=== PATIENT | male | born 1945 | race Caucasian/White ===

== ENCOUNTER 2022-12-27 08:19 | Inpatient (IN) ==
[2022-12-27] MEDS ORDERED: SODIUM CHLORIDE 0.9% 500 ML IV STA (08:38)
--- NOTE | 2022-12-27 08:41 | Emergency Department Note ---
Impression & Plan Chest pain ADMIT ED Provider Note HPI: The patient is a 77-year-old gentleman with history of paroxysmal atrial fibrillation, coronary artery disease status post CABG in 2008 through [facility], presents the emergency department with a chief complaint of ab normal EKG in the outpatient setting. Patient states that he is not normally in atrial fibrillation, he states that for the past 7 days he was able to tell given palpitations he was having that he was in A-fib. He had an outpatient appointment scheduled today with [facility] and EKG performed at that facility was "abnormal rhythm" according to the patient and therefore he was sent to the ED for further management. Patient denies any chest pain or shortness of breath. He does note that 3 weeks ago he was at [facility] in [place] and was admitted for "a heart attack". Patient underwent cardiac catheterization per outside hospital chart review, this did show evidence of sig nificant coronary artery disease with collateral circulation buildup and therefore stenting was not performed. He was diagnosed with NSTEMI. Manage medically. He did undergo cardioversion for atrial flutter prior to discharge. On arrival here the ED the patient is alert, he is in no acute distress, states that he is on a blood thinner but he does not know what it is. He is saturating well on room air and is otherwise well-appearing on my initial assessment. EKG obtained prior to my assessment does show evidence of atrial fibrillation that is rate controlled. ROS: - Per HPI *Outpatient medications and allergy history reviewed. *Pertinent external medical records reviewed. 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 Medical Decision Making: Patient presented to the emergency department with a chief complaint of palpitations for the past 7 days, had an abnormal EKG today in the outpatient s etting with [facility] that reportedly showed "abnormal rhythm" and therefore he was sent here to the ED to be assessed. On arrival the patient is in no acute distress, denies any chest pain or shortness of breath. IV was established and lab work obtained. 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 Lab work shows no leukocytosis, hemoglobin is normal at 15.5, platelet count within normal limits, CMP does not show any critical abnormalities, does show evidence of CKD and creatinine today is 1.85 near baseline, troponin is mildly elevated at 35.9, patient denies any chest pain. I did receive a phone call from Crissy Valles in the cardiology office for [facility], she states the patient was mentioning that he did have some substernal chest pain over the past week at rest that resolved with nitroglycerin. I asked the patient about this and he says in the past 3 days he has not had chest pain but earlier in the week he was having episodes that were resolved with nitroglycerin and they were occurring at rest. Given his extensive history of coronary artery disease with recent stenting, I feel he is appropriate for admission given this history. I did discuss the patient's case with on-call cardiology for [facility] given that he got all of his recent procedures performed at [facility], case was discussed with Dr. Ramírez, plan at this time will be for admission to the hospitalist service with cardiology consultation, patient will be made n.p.o. in case there is indication for cardioversion later this afternoon. At this time he is hemodynamically stable and in atrial fibrillation that is rate controlled. Patient had recent cardiac catheterization performed just 1 month ago at [facility], his EKG today does not show any evidence of ST elevation and he is chest pain-free, I do not see indication for emergent transfer to tertiary care facility for repeat catheterization at this time. Patient is in agreement. Case was discussed with the on-call midlevel provider for [facility], patient was placed for admission in stable condition. Consultants: -Cardiology, Dr. Ramírez -Hospitalist: Dr. Canas Disposition discussion held by myself with: Patient Diagnosis: 1. High risk chest pain, transient 2. Rate controlled atrial fibrillation 3. History of coronary artery disease 4. Elevated troponin Disposition: Admission Saúl Kaba DO Emergency Medicine Past Med/Surg History Medical History (Updated 12/27/22 @ 11:09 by Saúl Kaba DO) Atrial flutter CAD (coronary artery disease) DM II (diabetes mellitus, type II), controlled HLD (hyperlipidemia) HTN (hypertension) Hx of cataract Paroxysmal A-fib Surgical History (Updated 12/27/22 @ 11:04 by Nivia Hutson PA-C) H/O heart artery stent Hx of colonoscopy Hx of esophagogastroduodenoscopy S/P cardiac cath Family History (Updated 12/27/22 @ 11:05 by Nivia Hutson PA-C) Father Cancer Brother Lung disease Social History Smoking Status: Never smoker Preferred Language: French Feels Safe at Home: Yes Results & Data (ED) Vital Signs Vital Signs - 24 hr 12/27/22 08:27 12/27/22 08:45 12/27/22 08:48 Temperature 36.1 C L Temperature Source Temporal Artery Scan Pulse Rate 80 71 Respiratory Rate 22 Respiratory Effort / Characteristics Non-Labored Respiratory Depth Normal Blood Pressure 121/76 Blood Pressure Mean 91 Pulse Oximetry 96 96 Oxygen Delivery Method Room Air Room Air Sepsis Recent Fever Within 48 Hours No Sepsis New/Unexplained Change in Mental Status N/A Sepsis Action Taken by Nursing No Action Required Laboratory Data 12/27/22 08:45 12/27/22 08:45 Lab Results 12/27/22 12/27/22 12/27/22 Range/Units 08:45 08:45 08:45 WBC 7.86 (4.8-10.8) K/ul RBC 5.02 (4.70-6.10) M/uL Hgb 15.5 (14.0-18.0) g/dl Hct 47.2 (42.0-52.0) % MCV 94.0 (80.0-100.0) fL MCH 30.9 (25.0-34.0) pg MCHC 32.8 (32.0-36.0) g/dL RDW Std Deviation 46.3 (36.4-46.3) fL RDW Coeff of Katelyn 13.4 (11.5-14.5) % Plt Count 218 (130-400) K/uL MPV 9.8 (9.4-12.4) fL Immature Gran % (Auto) 0.3 % Neut % (Auto) 66.4 % Lymph % (Auto) 20.5 % [place] % (Auto) 9.4 % Eos % (Auto) 2.5 % Baso % (Auto) 0.9 % Neut # (Auto) 5.22 (1.40-6.50) K/uL Lymph # (Auto) 1.61 (1.2-3.4) K/uL [place] # (Auto) 0.74 H (0.11-0.59) K/uL Eos # (Auto) 0.20 (0-0.50) K/uL Baso # (Auto) 0.07 (0-0.2) K/uL Immature Gran # (Auto) 0.02 (0.01-0.20) K/uL PT 10.9 (9.0-12.0) Seconds INR 1.0 (0.9-1.1) Sodium 136 (136-145) mmol/L Potassium 5.0 (3.5-5.1) mmol/L Chloride 106 (98-107) mmol/L Carbon Dioxide 24 (21-32) mmol/L Anion Gap 6 (3-11) BUN 56 H (6-23) mg/dl Creatinine 1.85 H (0.6-1.4) mg/dl Est Cr Clr Drug Dosing 30.3 ml/min Est GFR ( Amer) 39.3 ml/min Est GFR (Non-Af Amer) 33.9 ml/min BUN/Creatinine Ratio 30.3 H (10-20) Glucose 149 H (70-99(Fasting)) mg/dl Calcium 9.8 (8.6-10.3) mg/dl Magnesium 2.0 (1.7-2.4) mg/dl Total Bilirubin 0.5 (0.2-1.0) mg/dl AST 10 L (13-39) U/L ALT 12 (7-52) U/L Alkaline Phosphatase 73 (34-104) U/L Troponin I High Sens 35.9 H (0-20) pg/ml Total Protein 7.6 (6.0-8.3) gm/dl Albumin 4.6 (3.4-5.0) gm/dl Globulin 3.0 (2.5-4.0) gm/dl Albumin/Globulin Ratio 1.5 (0.9-2) Lipase 65 (11-82) U/L TSH (0.300-4.500) uIu/ml SARS-CoV-2, RNA, NAAT (NEGATIVE) 12/27/22 12/27/22 Range/Units 08:45 09:15 WBC (4.8-10.8) K/ul RBC (4.70-6.10) M/uL Hgb (14.0-18.0) g/dl Hct (42.0-52.0) % MCV (80.0-100.0) fL MCH (25.0-34.0) pg MCHC (32.0-36.0) g/dL RDW Std Deviation (36.4-46.3) fL RDW Coeff of Katelyn (11.5-14.5) % Plt Count (130-400) K/uL MPV (9.4-12.4) fL Immature Gran % (Auto) % Neut % (Auto) % Lymph % (Auto) % [place] % (Auto) % Eos % (Auto) % Baso % (Auto) % Neut # (Auto) (1.40-6.50) K/uL Lymph # (Auto) (1.2-3.4) K/uL [place] # (Auto) (0.11-0.59) K/uL Eos # (Auto) (0-0.50) K/uL Baso # (Auto) (0-0.2) K/uL Immature Gran # (Auto) (0.01-0.20) K/uL PT (9.0-12.0) Seconds INR (0.9-1.1) Sodium (136-145) mmol/L Potassium (3.5-5.1) mmol/L Chloride (98-107) mmol/L Carbon Dioxide (21-32) mmol/L Anion Gap (3-11) BUN (6-23) mg/dl Creatinine (0.6-1.4) mg/dl Est Cr Clr Drug Dosing ml/min Est GFR ( Amer) ml/min Est GFR (Non-Af Amer) ml/min BUN/Creatinine Ratio (10-20) Glucose (70-99(Fasting)) mg/dl Calcium (8.6-10.3) mg/dl Magnesium (1.7-2.4) mg/dl Total Bilirubin (0.2-1.0) mg/dl AST (13-39) U/L ALT (7-52) U/L Alkaline Phosphatase (34-104) U/L Troponin I High Sens (0-20) pg/ml Total Protein (6.0-8.3) gm/dl Albumin (3.4-5.0) gm/dl Globulin (2.5-4.0) gm/dl Albumin/Globulin Ratio (0.9-2) Lipase (11-82) U/L TSH 0.654 (0.300-4.500) uIu/ml SARS-CoV-2, RNA, NAAT NEGATIVE (NEGATIVE) Administered Medications Discontinued Medications Sodium Chloride (Nss) 500 mls @ 999 mls/hr IV .Q31M STA Stop: 12/27/22 09:08 Last Infusion: 12/27/22 10:06 Dose: 0 mls/hr Documented By: Admin: 12/27/22 09:28 Dose: 999 mls/hr Documented By: OL Imaging Data Radiologist's Impression: Chest X-Ray 12/27/22 08:39 XR chest 1V portable CLINICAL HISTORY: Chest pain, nonspecific COMPARISON STUDY: No previous studies for comparison. FINDINGS: There are median sternotomy wires. Cardiac size is at the upper limits of normal. No pneumothorax or pleural effusion is present. There is no consolidation or evidence for pulmonary edema. IMPRESSION: No acute cardiopulmonary findings. ACT 112: Negative or not required by law. Electronically signed by: Rodger Judd M.D. 12/27/2022 9:01 AM Discharge Plan Visit Data Chief Complaint: Abnormal Labs/Diagnostic Testing Stated Complaint: EKG LOOKED FUNNY ED Provider: Saúl Kaba Discharge Problem: Chest pain Forms Stand Alone Forms: [facility] Referrals Referrals: PCP,NO [Primary Care Provider] -
--- NOTE | 2022-12-27 09:04 | XRay Report ---
XR chest 1V portable CLINICAL HISTORY: Chest pain, nonspecific COMPARISON STUDY: No previous studies for comparison. FINDINGS: There are median sternotomy wires. Cardiac size is at the upper limits of normal. No pneumo thorax or pleural effusion is present. There is no consolidation or evidence for pulmonary edema. IMPRESSION: No acute cardiopulmonary findings. ACT 112: Negative or not required by law. Electronically signed by: Rodger Judd M.D. 12/27/2022 9:01 AM
[2022-12-27 09:18] LABS: Basophils # (auto) 0.07 K/uL (0-0.2); Basophils % (auto) 0.9 %; Eosinophils % (auto) 2.5 %; Hematocrit (blood only) 47.2 % (42.0-52.0); Hemoglobin 15.5 g/dl (14.0-18.0); Immature Granulocytes # (auto) 0.02 K/uL (0.01-0.20); Immature Granulocytes % (auto) 0.3 %; Lymphocytes # (auto) 1.61 K/uL (1.2-3.4); Lymphocytes % (auto) 20.5 %; Mean Corpuscular Hemoglobin 30.9 pg (25.0-34.0); Mean Corpuscular Hgb Conc 32.8 g/dL (32.0-36.0); Mean Platelet Volume 9.8 fL (9.4-12.4); Monocytes # (auto) 0.74 K/uL (0.11-0.59); Monocytes % (auto) 9.4 %; Neutrophils # (auto) 5.22 K/uL (1.40-6.50); Neutrophils % (auto) 66.4 %; Platelet Count 218 K/uL (130-400); RDW Coefficient of Variation 13.4 % (11.5-14.5); RDW Standard Deviation 46.3 fL (36.4-46.3); Red Blood Count 5.02 M/uL (4.70-6.10); White Blood Count 7.86 K/ul (4.8-10.8)
[2022-12-27 09:29] LABS: Albumin Globulin Ratio 1.5 (0.9-2); Albumin Level 4.6 gm/dl (3.4-5.0); BUN Creatinine Ratio 30.3 (10-20); Bilirubin,Total 0.5 mg/dl (0.2-1.0); Calcium 9.8 mg/dl (8.6-10.3); Creatinine Clr Calc Pharmacy 30.3 ml/min; Est GFR (African American) 39.3 ml/min; Est GFR (Non-African American) 33.9 ml/min; Total Protein 7.6 gm/dl (6.0-8.3)
[2022-12-27 09:35] LABS: Troponin I High Sensitivity 35.9 pg/ml (0-20)
[2022-12-27 09:37] LABS: Prothrombin Time 10.9 Seconds (9.0-12.0)
--- NOTE | 2022-12-27 11:06 | History & Physical Report ---
Date of Service December 27, 2022 Assessment & Plan (1) Unstable angina: (2) Atrial flutter: (3) Paroxysmal A-fib: (4) CAD (coronary artery disease): (5) HTN (hypertension): (6) HLD (hyperlipidemia): Plan: - Admit to med tele - Admit to tele for observation for r/o - Trend cardiac biomarkers, initial set was in 30s - EKG reviewed as above - Remain NPO, continue eliquis, has not missed any doses of Eliquis. Will plan for cardioversion this afternoon if coordination allows for cardioversion around 2 pm. - Cardiology consulted - Dr. Ramírez - discussed at bedside - Last echo was reviewed showing EF of 35-39%, large sized inferior, posterior and lateral wall motion abnormality with hypokinesis to akinesis of the segments. Mild aortic valve regur present, mild mitral regurg present - PT/OT consulted - Hold on carvedilol 6.25 mg BID, diltiazem 180 mg daily -- may consider adjusting carvedilol and diltiazem to metoprolol and amiodarone -- will defer to cards. - Cont lisinopril 10 mg daily, eliquis 5 mg BID, baby aspirin (7) DM II (diabetes mellitus, type II), controlled: Plan: - ISS with accuchecks achs - Hold metformin today DVT ppx: - teds, scds, eliquis CODE : Full code Dispo: From home, likely to remain in the hospital x 1-2 days A total of 75 minutes were spent with greater than 50% of that time face to face with the patient, personally reviewing all current laboratories, imaging studies, past medication reconciliation, outpatient chart review, and discussion with specialists to collaborate care for the patient with attending. Please see attending documentation for corrections and/or additions. History of Present Illness Chief Complaint: chest pain Primary Care Provider: NO PCP This is a 77-year-old male with PMHx of CAD status post double CABG in 2008, history of NSTEMI, acute on chronic systolic heart failure, HTN, HLD, paroxysmal A-fib, DM type II. Patient was recently hospitalized beginning of November 2022 for chest pain and dyspnea which was found to be NSTEMI and in a flutter at [facility] and was life flighted to [facility]. He was treated medically overnight with aggressive diuresis. He underwent a cardiac cath on 11/08/2022 which showed critical creek vessel disease with total occlusion of the mid LAD, mid left circumflex, and RCA. Orta to LAD was patent. There was a distal lesion in the creek LAD after the touchdown of the LIMAbut felt to be too distal for meaningful pursuit. The SVG was occluded. His RCA and L circumflex territories were supplied by collaterals from his orta to LAD. Additionally the patient underwent cardioversion following the cath with return to normal sinus rhythm. He was discharged home on 11/10/22. Pt had felt good for about 7- 10 days, and then started feeling irregular heartbeat and fatigue again. Pt was in to see his cardiology and had blood work recently, on review this past Friday states liver function was elevated (however today are normal), and he was in to see the doctor today for review of this. While in the office, he is having EKG changes showing aflutter. Today the patient presents with on afib within the past 7-8 days. He noticed lightheadedness and dizziness. No falls but admits to having weakness which is much worse in this same timeframe. His HR has been under 100 but his BP has been low. He feels better when his bp is around 135. He has been working with adjusting some of his medications, believers he was recently taken off spironolactone this past Friday. He admits to having chest tightness even this morning and took a nitro tablet. He has used nitro about 4 times in the past 7-8days whenever gets similar symptoms. He denies any specific chest pain but this chest pressure is similar to his recent heart attack, but that day was much worse. He has had shortness of breath, nausea, denies vomiting, diarrhea, constipation, or abdominal pain. Denies fever chills sweats. Allergies Allergy/AdvReac Type Severity Reaction Status Date / Time No Known Allergies Allergy Unverified 12/27/22 12:55 Home Medications Medication Instructions Recorded Confirmed Type apixaban 5 mg tablet (Eliquis) 5 mg PO BID 12/27/22 12/27/22 History aspirin 81 mg tablet,delayed 81 mg PO DAILY 12/27/22 12/27/22 History release (Adult Low Dose Aspirin) atorvastatin 80 mg tablet 80 mg PO HS 12/27/22 12/27/22 History carvedilol 6.25 mg tablet 6.25 mg PO BID 12/27/22 12/27/22 History dapagliflozin 10 mg tablet 10 mg PO DAILY 12/27/22 12/27/22 History (Far) diltiazem HCl 180 mg 180 mg PO DAILY 12/27/22 12/27/22 History capsule,extended release 24 hr ezetimibe 10 mg tablet 10 mg PO DAILY 12/27/22 12/27/22 History hydrochlorothiazide 12.5 mg capsule 12.5 mg PO DAILY 12/27/22 12/27/22 History lisinopril 10 mg tablet 10 mg PO DAILY 12/27/22 12/27/22 History metformin 1,000 mg tablet 1,000 mg PO QAM 12/27/22 12/27/22 History metformin 500 mg tablet 500 mg PO QPM 12/27/22 12/27/22 History nitroglycerin 0.4 mg sublingual See Rx Instructions .Route .COMPLEX 12/27/22 12/27/22 History tablet Past Med/Surg History Medical History Atrial flutter CAD (coronary artery disease) DM II (diabetes mellitus, type II), controlled HLD (hyperlipidemia) HTN (hypertension) Hx of cataract Paroxysmal A-fib Surgical History Hx of colonoscopy Hx of esophagogastroduodenoscopy S/P cardiac cath Family History Father Cancer Brother Lung disease Social History Smoking Status: Never smoker Hx Alcohol Use: No Hx Substance Use: No Beliefs That Will Affect Care: None Current Living Situation: Family Feels Safe at Home: Yes Safety Concerns: Feels Safe At This Time Review of Systems Review of Systems: Constitutional: No fever, sweats or chills, + fatigue Eyes: No diplopia, no worsening or blurred vision ENT: normal hearing, no trouble swallowing Respiratory: No cough, sputum, dyspnea at rest or on exertion Cardiovascular: As per HPI Abdomen: No pain, occasional nausea, no vomiting, diarrhea or constipation Musculoskeletal: No joint pain, calf pain, swelling Neurologic: No weakness, numbness/tingling, or balance problems Psychiatric: No anxiety or depression Skin: No rash or itch Physical Exam Physical Exam: General: awake, alert, no apparent distress Head: Normocephalic, atraumatic ENT: PERRL, EOMI, no pharyngeal exudate, mucous membranes moist Chest: Clear to auscultation, on room air, no adventitious breath sounds Cardiac: Irregular, HR in mid 70s, no murmur, no JVD, normal peripheral pulses, good capillary refill Abdominal: NABS x 4 quadrants, soft, nondistended, nontender to palpation, no rebound or guarding Extremities: Normal inspection, no peripheral edema or erythema, calfs nontender to palpation Psych: Normal mood and affect Neuro: AAO x 3, strength intact bilaterally and rated 5/5, no motor deficits, speech is clear, no peripheral sensory deficits Results & Data Results & Data Vital Signs (Past 12 Hours) Vital Signs Temp Pulse Resp BP Pulse Ox O2 Del Method 12/27/22 08:48 96 Room Air 12/27/22 08:45 71 12/27/22 08:27 36.1 C L 80 22 121/76 96 Room Air Laboratory Results 12/27/22 12/27/22 12/27/22 09:15 08:45 08:45 WBC RBC Hgb Hct MCV MCH MCHC RDW Std Deviation RDW Coeff of Katelyn Plt Count MPV Immature Gran % (Auto) Neut % (Auto) Lymph % (Auto) [place] % (Auto) Eos % (Auto) Baso % (Auto) Neut # (Auto) Lymph # (Auto) [place] # (Auto) Eos # (Auto) Baso # (Auto) Immature Gran # (Auto) PT INR Sodium 136 Potassium 5.0 Chloride 106 Carbon Dioxide 24 Anion Gap 6 BUN 56 H Creatinine 1.85 H Est Cr Clr Drug Dosing 30.3 Est GFR ( Amer) 39.3 Est GFR (Non-Af Amer) 33.9 BUN/Creatinine Ratio 30.3 H Glucose 149 H Calcium 9.8 Magnesium 2.0 Total Bilirubin 0.5 AST 10 L ALT 12 Alkaline Phosphatase 73 Troponin I High Sens 35.9 H Total Protein 7.6 Albumin 4.6 Globulin 3.0 Albumin/Globulin Ratio 1.5 Lipase 65 TSH 0.654 SARS-CoV-2, RNA, NAAT NEGATIVE 12/27/22 12/27/22 08:45 08:45 WBC 7.86 RBC 5.02 Hgb 15.5 Hct 47.2 MCV 94.0 MCH 30.9 MCHC 32.8 RDW Std Deviation 46.3 RDW Coeff of Katelyn 13.4 Plt Count 218 MPV 9.8 Immature Gran % (Auto) 0.3 Neut % (Auto) 66.4 Lymph % (Auto) 20.5 [place] % (Auto) 9.4 Eos % (Auto) 2.5 Baso % (Auto) 0.9 Neut # (Auto) 5.22 Lymph # (Auto) 1.61 [place] # (Auto) 0.74 H Eos # (Auto) 0.20 Baso # (Auto) 0.07 Immature Gran # (Auto) 0.02 PT 10.9 INR 1.0 Sodium Potassium Chloride Carbon Dioxide Anion Gap BUN Creatinine Est Cr Clr Drug Dosing Est GFR ( Amer) Est GFR (Non-Af Amer) BUN/Creatinine Ratio Glucose Calcium Magnesium Total Bilirubin AST ALT Alkaline Phosphatase Troponin I High Sens Total Protein Albumin Globulin Albumin/Globulin Ratio Lipase TSH SARS-CoV-2, RNA, NAAT Diagnostic Findings Chest X-Ray 12/27/22 08:39 XR chest 1V portable CLINICAL HISTORY: Chest pain, nonspecific COMPARISON STUDY: No previous studies for comparison. FINDINGS: There are median sternotomy wires. Cardiac size is at the upper limits of normal. No pneumothorax or pleural effusion is present. There is no consolidation or evidence for pulmonary edema. IMPRESSION: No acute cardiopulmonary findings. ACT 112: Negative or not required by law. Electronically signed by: Rodger Judd M.D. 12/27/2022 9:01 AM ECG Additional Comments: 27-DEC-2022 08:36:28 [facility]-EDSTAT ROUTINE RETRIEVAL Atrial fibrillation ST & T wave abnormality, consider lateral ischemia Abnormal ECG No previous ECGs available 25mm/[id number] 243CID: 20Unconfirmed Vent. rate 82 BPM IN interval * ms QRS duration 112 ms QT/QTc 388/453 ms Code Status & VTE Plan Code Status Full code Supervising Physician Co-Signing Physician Notes I have seen and examined the patient and have discussed the case with the provider above. I agree with the assessment and plan as stated. 77 yo M with known CAD and h/o atrial flutter presents with exertional angina for the past week. Given his symptoms, he underwent DCCV today with cardiology with successful conversion to sinus rhythm. He reports feeling better and currently not having any significant symptoms. Physical exam reveals a WNWD M in NAD who is mentating clearly. Heart exam reveals S1/2 heard with no significant murmurs, gallops or rubs. Rate and rhythm are regular. Lungs are CTAB and abdomen is soft NTND. Physical exam is otherwise unremarkable. Post cardioversion he was loaded with IV amiodarone and coreg and diltiazem were stopped. Metoprolol will be continued starting tomorrow. CBC is normal CHEM panel WNL and creatinine is around his baseline of 1.5 (currently 1.8). HS trop slightly elevated likely related to demand ischemia. CXR with no acute findings. 1. PAF 2. CAD with exertional angina 3. CKD Stage III 77 yo M with one week of symptoms while in atrial fibrillation. Reporting exertional angina. MIld troponin elevation. Changes as noted above and continue apixaban. Cardiology consulted and will continue to adjust his meds. CKD stage III present. Repeat BMP in am. Avoid contrast and other nephrotoxic substances at this time. Eunice Canas DO [facility]
[2022-12-27] MEDS ORDERED: ACETAMINOPHEN 325 MG TAB PO PRN (12:31)
[2022-12-27] MEDS ORDERED: GLUCOSE 10 TAB/TUBE PO PRN (12:31)
[2022-12-27] MEDS ORDERED: GLUCAGON FOR INJ 1 MG VIAL SQ PRN (12:31)
[2022-12-27] MEDS ORDERED: CARBOHYDRATES FOR HYPOGLYCEMIA PO PRN (12:31)
[2022-12-27] MEDS ORDERED: GLUCOSE 40% GEL 15 GM TUBE PO PRN (12:31)
[2022-12-27] MEDS ORDERED: ONDANSETRON INJ 2 MG/ML 2 ML VIAL IV PRN (12:31)
[2022-12-27] MEDS ORDERED: DEXTROSE 50% 50 ML SYRINGE IV PRN (12:31)
[2022-12-27] MEDS ORDERED: PNEUMOCOCCAL POLYSACCHARIDES 25 MCG/0.5 ML VIAL/SYR IM ONE (12:38)
[2022-12-27] MEDS: INSULIN ASPART PER UNIT CHARGE SC SCH ×3 (12:54→21:05)
[2022-12-27] MEDS: Patient's ALLERGY Info needs ENTERED SCH ×2 (13:13→13:35)
--- NOTE | 2022-12-27 13:14 | Anesthesiology Consultation ---
Date of Service December 27, 2022 Assessment & Plan Chart Review Chart Review: Acceptable Risk for Surgery, Patient NOT seen in Pre Admission Testing and carpentry teacher initiated Consults Requested none History Surgery Operation Date: 12/27/22 13:00 Proposed Procedures p Cardioversion Litigation Specialist w/Anesthesia - Roel Ramírez DO Height/Weight Height: 5 ft 7 in Weight: 67 kg Allergies Allergy/AdvReac Type Severity Reaction Status Date / Time No Known Allergies Allergy Unverified 12/27/22 12:55 Medications Home Medications Medication Instructions Recorded Confirmed Last Taken apixaban 5 mg tablet (Eliquis) 5 mg PO BID 12/27/22 12/27/22 12/27/22 aspirin 81 mg tablet,delayed 81 mg PO DAILY 12/27/22 12/27/22 12/26/22 release (Adult Low Dose Aspirin) atorvastatin 80 mg tablet 80 mg PO HS 12/27/22 12/27/22 12/26/22 carvedilol 6.25 mg tablet 6.25 mg PO BID 12/27/22 12/27/22 12/27/22 dapagliflozin 10 mg tablet 10 mg PO DAILY 12/27/22 12/27/22 12/27/22 (Farxisd) diltiazem HCl 180 mg 180 mg PO DAILY 12/27/22 12/27/22 12/27/22 capsule,extended release 24 hr ezetimibe 10 mg tablet 10 mg PO DAILY 12/27/22 12/27/22 12/27/22 hydrochlorothiazide 12.5 mg capsule 12.5 mg PO DAILY 12/27/22 12/27/22 12/27/22 lisinopril 10 mg tablet 10 mg PO DAILY 12/27/22 12/27/22 12/27/22 metformin 1,000 mg tablet 1,000 mg PO QAM 12/27/22 12/27/22 12/27/22 metformin 500 mg tablet 500 mg PO QPM 12/27/22 12/27/22 12/26/22 nitroglycerin 0.4 mg sublingual See Rx Instructions .Route .COMPLEX 12/27/22 12/27/22 12/27/22 tablet Active Medications Generic Name Dose Route Start Last Admin Trade Name Freq PRN Reason Stop Dose Admin Insulin Aspart 0 units 12/27/22 12:31 12/27/22 12:54 Insulin Aspart Per Unit Charge SC 01/26/23 12:30 Not Given ACHS GOLDEN Past Medical History Medical History Atrial flutter CAD (coronary artery disease) DM II (diabetes mellitus, type II), controlled HLD (hyperlipidemia) HTN (hypertension) Hx of cataract Paroxysmal A-fib Past Family History Family History Father Cancer Brother Lung disease Past Surgical History Surgical History Hx of colonoscopy Hx of esophagogastroduodenoscopy S/P cardiac cath Social History Smoking Status: Never smoker Hx Alcohol Use: No Hx Substance Use: No Physical Exam Vital Signs Last Vital Signs Temp 36.4 C L 12/27/22 12:33 Pulse 83 12/27/22 12:40 Resp 18 12/27/22 12:33 BP 124/69 12/27/22 12:33 Pulse Ox 97 12/27/22 12:33 O2 Del Method Room Air 12/27/22 12:33 Testing Laboratory Results 12/27/22 08:45 12/27/22 08:45 PT 10.9 Seconds (9.0-12.0) 12/27/22 08:45 INR 1.0 (0.9-1.1) 12/27/22 08:45 12/27/22 12:46 POC Glucose 115 H Electrocardiogram Date: 12/27/2227-Dec-2022 08:36:28 [facility]-EDSTAT ROUTINE RETRIEVAL Atrial fibrillation ST & T wave abnormality, consider lateral ischemia Abnormal ECG No previous ECGs available. Ventricular rate 82. Chest X-Ray Date: 12/27/22 XR chest 1V portable CLINICAL HISTORY: Chest pain, nonspecific COMPARISON STUDY: No previous studies for comparison. FINDINGS: There are median sternotomy wires. Cardiac size is at the upper limits of normal. No pneumothorax or pleural effusion is present. There is no consolidation or evidence for pulmonary edema. IMPRESSION: No acute cardiopulmonary findings. Echocardiogram EF: 35-39 LV Function: dysfunctional RWMA: + akinetic and + hypokinetic Valvular Disease: + AI (mild) and + MR (mild) Unknown date
--- NOTE | 2022-12-27 13:22 | Cardiology Consultation ---
Date of Consultation December 27, 2022 Assessment & Plan (1) Exertional angina: (2) CAD (coronary artery disease): (3) Paroxysmal A-fib: - Patient with a longstanding history of atrial flutter. I had reviewed his case with Crissy Valles PA-C of the [facility] practice. When he established with her in June, it appears the patient had been in a atrial flutter for approximately 2 years. He was on metoprolol at that time, and this was more recently transition to carvedilol, plus diltiazem. He has been anticoagulated with Eliquis on a chronic basis since at least June, per patient. He has not missed any recent doses. -Cardiac catheterization performed in November, when patient presented with acute chest pain symptoms and non-ST segment elevation myocardial infarction revealed multivessel coronary heart disease without interventional culprit. Patient however did undergo cardioversion and noted interval improvement in his symptoms. He presents today having lapsed this time into what appears to be a rate controlled atrial fibrillation as compared to atrial flutter. He describes feeling poorly from a palpitation standpoint, and also has occasional chest tightness. -Severe left atrial argument is noted on his most recent echocardiogram. -Given the patient's symptoms today, as well as characterization that he felt better when he is in sinus rhythm, we will proceed with a second trial of direct-current cardioversion. -At present we will plan on continuing his Eliquis. He confirmed that he took his Eliquis this morning at 6 AM along with carvedilol and diltiazem. Post cardioversion we will consider transitioning him off of carvedilol and diltiazem and onto metoprolol and amiodarone. His liver function tests and TSH are stable with regards to baseline for amiodarone treatment. Chest x-ray reveals no acute cardiac pulmonary abnormality. -Moderate left ventricular systolic dysfunction noted at the time of his echocardiogram performed last month. LVEF however was 40% at the time of past echocardiogram within the [facility] system obtained back to 2018 so not certain his ejection fraction has really changed significantly. -Mime status appears stable clinically. Creatinine of 1.8 is not far from his previous baseline which has been in the range of 1.5-1.7 per available labs. Discussed benefits and risks of direct-current cardioversion with patient. Informed consent obtained, patient elects to proceed. Cardioversion tentatively planned in the heart center this afternoon after he has been n.p.o. for sufficient amount of time and when able to coordinate with anesthesia. Case discussed with Dr Kaba , Crissy Valles PA-C, and Nviia Hutson PA-C for the purpose of coordinating care. I spent a total of 60 minutes on the date of service in preparation, delivery, and documentation of the care provided to this patient, excluding any time spent in the performance of separately billed services. History of Present Illness Attending Physician: Jeffrey Carpio MD History of Present Illness Arnulfo Lazo is a 77 year old male seen in cardiology consultation per the request of Dr. Kaba for the evaluation of chest discomfort, subjective palpitations, and atrial fibrillation. The patient had previously followed with cardiology at [facility], most recent outpatient visit had been in 2019. In June, he established with Crissy Valles PA-C with [facility] in [place]. The patient was seen in close outpatient follow up by Ms. Valles today having recently been hospitalized at [facility]. He had described palpitations and recurrent chest discomfort prompting referral to the emergency department. Patient notes that since his hospital discharge approximately 6 weeks ago he had been feeling well without subjective palpitations or chest tightness for approximately 7 to 10 days, and has been felt progressively worse in the interim with progressive fatigue, palpitations, and chest tightness for about the last 7 to 8 days. He has taken 4 nitroglycerin tablets in the interval. His last meal was 1/4 cup of raisin Bran with milk this morning at 6 AM. 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 -EKG performed at H dated 11/07/2022 revealed atrial flutter with incomplete right bundle branch block, and marked inferior and lateral ST segment depression with noted 2-2.[address] segment elevation in leads aVR and V1. -Compared to a previous tracing performed in October,, the atrial flutter was a chronic finding, however the lateral ST depression was much more prominent than the October tracing. -The patient was transferred by helicopter to [facility] and underwent cardiac catheterization by Dr. Howe on 11/08/2022. Patient was found to have multivessel coronary heart disease with 100% stenosis in the mid LAD, 100% stenosis of the mid circumflex, and the right coronary artery was a small nondominant vessel with a 100% stenosis. The ELISE to LAD was widely patent, distal however to the ELISE to LAD anastomosis however there was a 70% stenosis in the apical LAD. A saphenous vein graft that appeared to be to the obtuse marginal territory was 100% occluded. -Collaterals are noted from the LAD territory to the circumflex and right coronary territories. -Medical management was recommended and the patient underwent direct-current cardioversion receiving 200 J of biphasic energy at the time cardiac catheterization. -Summary of echocardiogram performed [facility]/03/26: The qualitative LV ejection fraction is 35-39% (moderately reduced). There is a large sized inferior, posterior, and lateral wall motion abnormality with hypokinesis to akinesis of the segments. The right ventricular cavity size is normal (basal dimension < 4.2 cm RV apical 4 chamber view). The right ventricular systolic function is mildly reduced Mild aortic valve regurgitation is present. Mild mitral regurgitation is present. Normal IVC size and collapsibility with sniff indicates a normal right atrial pressure of 3 mmHg. Severe left atrial enlargement was noted. Allergies Allergy/AdvReac Type Severity Reaction Status Date / Time No Known Allergies Allergy Unverified 12/27/22 12:55 Home Medications Medication Instructions Recorded Confirmed Type apixaban 5 mg tablet (Eliquis) 5 mg PO BID 12/27/22 12/27/22 History aspirin 81 mg tablet,delayed 81 mg PO DAILY 12/27/22 12/27/22 History release (Adult Low Dose Aspirin) atorvastatin 80 mg tablet 80 mg PO HS 12/27/22 12/27/22 History carvedilol 6.25 mg tablet 6.25 mg PO BID 12/27/22 12/27/22 History dapagliflozin 10 mg tablet 10 mg PO DAILY 12/27/22 12/27/22 History (Farxiga) diltiazem HCl 180 mg 180 mg PO DAILY 12/27/22 12/27/22 History capsule,extended release 24 hr ezetimibe 10 mg tablet 10 mg PO DAILY 12/27/22 12/27/22 History hydrochlorothiazide 12.5 mg capsule 12.5 mg PO DAILY 12/27/22 12/27/22 History lisinopril 10 mg tablet 10 mg PO DAILY 12/27/22 12/27/22 History metformin 1,000 mg tablet 1,000 mg PO QAM 12/27/22 12/27/22 History metformin 500 mg tablet 500 mg PO QPM 12/27/22 12/27/22 History nitroglycerin 0.4 mg sublingual See Rx Instructions .Route .COMPLEX 12/27/22 12/27/22 History tablet Patient History Medical History Atrial flutter CAD (coronary artery disease) DM II (diabetes mellitus, type II), controlled HLD (hyperlipidemia) HTN (hypertension) Hx of cataract Paroxysmal A-fib Surgical History Hx of colonoscopy Hx of esophagogastroduodenoscopy S/P cardiac cath Family History Father Cancer Brother Lung disease Social History Smoking Status: Never smoker Hx Alcohol Use: No Hx Substance Use: No Beliefs That Will Affect Care: None Current Living Situation: Family Feels Safe at Home: Yes Review of Systems Review of Systems: All systems reviewed & are unremarkable except as noted in HPI & below Physical Exam Physical Exam: Temp Pulse Resp BP Pulse Ox O2 Del Method 36.4 C L 83 18 124/69 97 Room Air 12/27/22 12:33 12/27/22 12:40 12/27/22 12:33 12/27/22 12:33 12/27/22 12:33 12/27/22 12:33 Constitutional: WD/WN, vitals as above Eyes: PERRL, conjunctivae normal, anicteric sclerae Respiratory: normal respiratory effort, lungs clear to auscultation Cardiovascular: RRR, no murmur, no edema Gastrointestinal (Abdomen): normal bowel sounds, soft, nontender, no hepatosplenomegaly Neurologic: PERRL, EOMI, accommodation nl, no face palsy, no dysarthria Results & Data Laboratory Results Cardiac Enzymes 12/27/22 Range/Units 08:45 AST 10 L (13-39) U/L Troponin I High Sens 35.9 H (0-20) pg/ml Coagulation 12/27/22 Range/Units 08:45 PT 10.9 (9.0-12.0) Seconds CBC 12/27/22 Range/Units 08:45 WBC 7.86 (4.8-10.8) K/ul RBC 5.02 (4.70-6.10) M/uL Hgb 15.5 (14.0-18.0) g/dl Hct 47.2 (42.0-52.0) % Plt Count 218 (130-400) K/uL Neut # (Auto) 5.22 (1.40-6.50) K/uL Lymph # (Auto) 1.61 (1.2-3.4) K/uL [place] # (Auto) 0.74 H (0.11-0.59) K/uL Eos # (Auto) 0.20 (0-0.50) K/uL Baso # (Auto) 0.07 (0-0.2) K/uL Comprehensive Metabolic Panel 12/27/22 Range/Units 08:45 Sodium 136 (136-145) mmol/L Potassium 5.0 (3.5-5.1) mmol/L Chloride 106 (98-107) mmol/L Carbon Dioxide 24 (21-32) mmol/L BUN 56 H (6-23) mg/dl Creatinine 1.85 H (0.6-1.4) mg/dl Glucose 149 H (70-99(Fasting)) mg/dl Calcium 9.8 (8.6-10.3) mg/dl AST 10 L (13-39) U/L ALT 12 (7-52) U/L Alkaline Phosphatase 73 (34-104) U/L Total Protein 7.6 (6.0-8.3) gm/dl Albumin 4.6 (3.4-5.0) gm/dl Diagnostic Findings EKG performed 12/27/2022 at [facility] and interpret independently: Atrial fibrillation 82 bpm, lateral ST depression. -Compared to the recent previous tracings performed in November, at [facility], this tracing appears to be consistent with atrial fibrillation rather than the previous atrial flutter that had a very regular RR interval. -Atrial fibrillation has replaced sinus rhythm -The lateral ST segment depression is relatively unchanged compared to the post catheterization/post cardioversion tracings performed last month and is much less prominent than that which was noted on 11/08/2022 at the time of his recent presentation with unstable symptoms to [facility]
[2022-12-27] MEDS ORDERED: PROPOFOL IV EMULSION 10 MG/ML 20 ML VIAL IV ONE (13:52)
[2022-12-27] MEDS ORDERED: 0.2 MICRON FILTER SET 1 EACH IV ONE (13:52)
[2022-12-27] MEDS ORDERED: LIDOCAINE 2% 2 ML VIAL/AMP(20MG/ML) INFIL ONE (13:52)
--- NOTE | 2022-12-27 13:55 | Anesthesiology Progress Note ---
Date of Service December 27, 2022 Anesthesia Post Procedure Vital Signs Vital Signs: Temp Pulse Pulse Resp BP BP Pulse Ox 12/27/22 13:19 81 18 120/65 100 12/27/22 12:40 83 12/27/22 12:33 12/27/22 12:33 36.4 C L 71 18 124/69 97 12/27/22 11:30 73 16 96 12/27/22 11:00 82 17 90 12/27/22 10:30 71 19 12/27/22 10:00 68 18 133/84 12/27/22 09:30 77 18 12/27/22 09:00 77 16 98 12/27/22 08:43 85 21 98 12/27/22 08:48 96 12/27/22 08:45 71 12/27/22 08:27 36.1 C L 80 22 121/76 96 O2 Del Method 12/27/22 13:19 Room Air 12/27/22 12:40 12/27/22 12:33 Room Air 12/27/22 12:33 Room Air 12/27/22 11:30 12/27/22 11:00 12/27/22 10:30 12/27/22 10:00 12/27/22 09:30 12/27/22 09:00 12/27/22 08:43 12/27/22 08:48 Room Air 12/27/22 08:45 12/27/22 08:27 Room Air Transfer of Care Handoff Completed per policy Notes Mental Status: alert / awake / arousable and participated in evaluation Patient Amnestic to Procedure: Yes Nausea / Vomiting: adequately controlled Pain: adequately controlled Airway Patency, RR, SpO2: stable & adequate BP & HR: stable & adequate Hydration State: stable & adequate Anesthetic Complications: no major complications apparent
[2022-12-27] MEDS ORDERED: AMIODARONE / D5W 360 MG/200 ML BAG IV ONE (14:00)
[2022-12-27] MEDS ORDERED: AMIODARONE 360MG / 200ML D5W (CATH LAB USE ONLY) IV ONE (14:00)
--- NOTE | 2022-12-27 14:00 | Cardioversion ---
Date of Service December 27, 2022 Electrical Cardioversion Rpt Electrical Cardioversion Report Cardiology Brief Post Op Date of Surgery December 27, 2022 Pre & Post Diagnosis Operation Date: 12/27/22 13:00 Procedure Preprocedure diagnosis: Symptomatic atrial fibrillation Postprocedure diagnosis: Successful conversion sinus rhythm Direct current cardioversion procedure: The patient's vital signs were monitored via the standard fashion. After informed consent was obtained and a timeout was performed the patient was sedated with the assistance of the anesthesia service receiving a total of 60 mg of IV propofol. Patient then underwent direct- current cardioversion receiving 200 J of synchronized biphasic energy x1 dose with successful conversion to sinus bradycardia. Appears procedure EKG revealed sinus bradycardia in the 50s, lateral ST segment depression observed relatively unchanged compared to the ST depression noted on the precordial version EKG tracing. Plan: Start IV amiodarone, 1 mg/min x 6 hours, then 0.5 mg/min thereafter with plans to transition to oral in the next 24 to 48 hours. Prior to hospital treatment with carvedilol has been discontinued. Prior to hospital treatment with diltiazem CD has been discontinued. Start metoprolol succinate 25 mg twice daily with hold for this evening. Managed Services Sales Consultant Roel Ramírez DO Timing Inspector Karen Jensen RN Estimated Blood Loss 0 Findings As noted above Anesthesia Type MAC Complications none
--- NOTE | 2022-12-27 14:50 | Electrocardiogram Report ---
Test Reason : Blood Pressure : / mmHG Vent. Rate : 082 BPM Atrial Rate : 000 BPM P-R Int : 000 ms QRS Dur : 112 ms QT Int : 388 ms P-R-T Axes : 000 008 181 degrees QTc Int : 453 ms Atrial fibrillation Abnormal ECG No previous ECGs available Confirmed by Kenneth Howell ([id number]) on 12/27/2022 2:50:23 PM Referred By: Confirmed By:Kenneth Howell
--- NOTE | 2022-12-27 15:04 | Electrocardiogram Report ---
Test Reason : Blood Pressure : / mmHG Vent. Rate : 050 BPM Atrial Rate : 050 BPM P-R Int : 280 ms QRS Dur : 102 ms QT Int : 452 ms P-R-T Axes : 028 013 164 degrees QTc Int : 412 ms Sinus bradycardia with 1st degree A-V block with Premature atrial complexes Abnormal ECG When compared with ECG of 27-DEC-2022 08:36, (unconfirmed) Sinus rhythm has replaced Atrial fibrillation Vent. rate has decreased BY 32 BPM T wave inversion more evident in Anterior leads Confirmed by Kenneth Howell ([id number]) on 12/27/2022 3:04:18 PM Referred By: REFERRED SELF Confirmed By:Kenneth Howell
[2022-12-27] MEDS ORDERED: AMIODARONE / D5W 360 MG/200 ML BAG IV SCH (20:00)
[2022-12-27] MEDS: ATORVASTATIN 40 MG TAB PO SCH (20:08)
[2022-12-27] MEDS: METOPROLOL SUCC 25MG EXT REL TAB PO SCH (20:08)
[2022-12-27] MEDS: APIXABAN 5 MG TABLET PO SCH (20:08)
[2022-12-28 06:29] LABS: Hematocrit (blood only) 38.5 % (42.0-52.0); Hemoglobin 12.5 g/dl (14.0-18.0); Mean Corpuscular Hemoglobin 30.6 pg (25.0-34.0); Mean Corpuscular Hgb Conc 32.5 g/dL (32.0-36.0); Mean Corpuscular Volume 94.4 fL (80.0-100.0); Mean Platelet Volume 9.8 fL (9.4-12.4); Platelet Count 183 K/uL (130-400); RDW Coefficient of Variation 13.6 % (11.5-14.5); RDW Standard Deviation 47.2 fL (36.4-46.3); Red Blood Count 4.08 M/uL (4.70-6.10); White Blood Count 7.47 K/ul (4.8-10.8)
[2022-12-28 06:50] LABS: Calcium 8.9 mg/dl (8.6-10.3); Magnesium 1.9 mg/dl (1.7-2.4); Potassium 4.5 mmol/L (3.5-5.1)
[2022-12-28 06:56] LABS: BUN Creatinine Ratio 34.5 (10-20); Creatinine Clr Calc Pharmacy 37.8 ml/min; Est GFR (African American) 51.4 ml/min; Est GFR (Non-African American) 44.4 ml/min
[2022-12-28 07:25] LABS: Estimated Average Glucose 171 mg/dl; Hemoglobin A1C 7.6 % (4.5-5.6)
[2022-12-28] MEDS: hydroCHLOROthiazide 25 MG TAB PO SCH (07:47)
[2022-12-28] MEDS: ASPIRIN 81 MG ECTAB PO SCH (07:47)
[2022-12-28] MEDS: lisinopril 10 MG TAB PO SCH (07:48)
[2022-12-28] MEDS: APIXABAN 5 MG TABLET PO SCH ×2 (07:49→20:09)
[2022-12-28] MEDS: EZETIMIBE 10 MG TABLET PO SCH (07:49)
[2022-12-28] MEDS: INSULIN ASPART PER UNIT CHARGE SC SCH ×4 (08:53→20:28)
[2022-12-28] MEDS: METOPROLOL SUCC 25MG EXT REL TAB PO SCH (09:23)
--- NOTE | 2022-12-28 11:40 | Cardiology Progress Note ---
Date of Service December 28, 2022 Assessment & Plan (1) Exertional angina: (2) CAD (coronary artery disease): (3) Paroxysmal A-fib: Plan The patient has been bradycardic following his cardioversion. He is currently on metoprolol which I will stop today. He does poorly whenever he is in atrial fibrillation and I think an antiarrhythmic medication is indicated. The plan was to start him on oral amiodarone after his cardioversion. He needs to stay on system administrator while we do this. Hopefully stopping the metoprolol and adding the amiodarone will not result in further bradycardia but if it does occur then he may need a pacemaker. Admission and Anticipated Discharge Date Admission Date: December 27, 2022 Subjective The patient is sitting in a chair. No complaints today but feels better after his cardioversion yesterday. Review of Systems Review of Systems: Review of Systems: See HPI for pertinent positives. All other 10 point review of systems are negative. Physical Exam Physical Exam: General: no acute distress and stated age Head: normocephalic, no masses, lesions, tenderness or abnormalities Eyes: conjunctiva are pink and non-injected, sclera clear Neck: supple, no adenopathy, no bruits, normal jugular venous pulse, no hepatojugular reflux Chest: normal shape and normal respiratory effort Lungs: clear to auscultation and percussion Cardiac Exam: - regular rate & rhythm, no murmurs gallops or rubs - normal S1, normal S2 Pulses: 2(+) throughout Abdomen: abdomen soft, non-tender, no abnormal masses and no hepatosplenomegaly Musculoskeletal: no gait disturbance, no joint inflammation, no deforming arthritis Extremities: no edema and no cyanosis Neuro: grossly normal exam Results & Data Vital Signs (Past 12 Hours) Vital Signs Temp Pulse Resp BP Pulse Ox O2 Del Method 12/28/22 07:49 36.5 C 47 L 19 124/72 97 Room Air 12/28/22 05:29 36.4 C L 50 L 18 138/70 97 Room Air 12/28/22 01:49 56 L 20 125/71 97 Room Air 12/28/22 02:09 36.2 C L 58 L 18 136/78 98 Room Air 12/27/22 23:59 36.6 C 60 21 121/74 97 Room Air Laboratory Results Laboratory Results - last 24 hr 12/27/22 12/27/22 12/27/22 12:46 12:46 16:37 WBC RBC Hgb Hct MCV MCH MCHC RDW Std Deviation RDW Coeff of Katelyn Plt Count MPV Sodium Potassium Chloride Carbon Dioxide Anion Gap BUN Creatinine Est Cr Clr Drug Dosing Est GFR ( Amer) Est GFR (Non-Af Amer) BUN/Creatinine Ratio Glucose POC Glucose 115 H 191 H Estimat Average Glucose Hemoglobin A1c Calcium Phosphorus Magnesium Troponin I High Sens 27.6 H 12/27/22 12/27/22 12/28/22 18:23 20:27 05:38 WBC 7.47 RBC 4.08 L Hgb 12.5 L D Hct 38.5 L MCV 94.4 MCH 30.6 MCHC 32.5 RDW Std Deviation 47.2 H RDW Coeff of Katelyn 13.6 Plt Count 183 MPV 9.8 Sodium Potassium Chloride Carbon Dioxide Anion Gap BUN Creatinine Est Cr Clr Drug Dosing Est GFR ( Amer) Est GFR (Non-Af Amer) BUN/Creatinine Ratio Glucose POC Glucose 117 H Estimat Average Glucose Hemoglobin A1c Calcium Phosphorus Magnesium Troponin I High Sens 28.2 H 12/28/22 12/28/22 12/28/22 05:38 05:38 07:24 WBC RBC Hgb Hct MCV MCH MCHC RDW Std Deviation RDW Coeff of Katelyn Plt Count MPV Sodium 138 Potassium 4.5 Chloride 108 H Carbon Dioxide 24 Anion Gap 6 BUN 51 H Creatinine 1.48 H D Est Cr Clr Drug Dosing 37.8 Est GFR ( Amer) 51.4 Est GFR (Non-Af Amer) 44.4 BUN/Creatinine Ratio 34.5 H Glucose 129 H POC Glucose 133 H Estimat Average Glucose 171 Hemoglobin A1c 7.6 H Calcium 8.9 Phosphorus 4.0 Magnesium 1.9 Troponin I High Sens 12/28/22 11:22 WBC RBC Hgb Hct MCV MCH MCHC RDW Std Deviation RDW Coeff of Katelyn Plt Count MPV Sodium Potassium Chloride Carbon Dioxide Anion Gap BUN Creatinine Est Cr Clr Drug Dosing Est GFR ( Amer) Est GFR (Non-Af Amer) BUN/Creatinine Ratio Glucose POC Glucose 154 H Estimat Average Glucose Hemoglobin A1c Calcium Phosphorus Magnesium Troponin I High Sens Medications Administered Current Inpatient Medications Acetaminophen (Acetaminophen 325 Mg Tab) 650 mg PO Q4H PRN PRN Reason: Moderate Pain (Scale 4, 5, 6) Stop: 01/26/23 12:30 Amiodarone HCl (Amiodarone 200 Mg Tab) 200 mg PO TIDM [facility] Stop: 01/27/23 11:59 Apixaban (Apixaban 5 Mg Tablet) 5 mg PO BID G[facility]EN Stop: 01/26/23 20:59 Last Admin: 12/28/22 07:49 Dose: 5 mg Aspirin (Aspirin 81 Mg Ectab) 81 mg PO DAILY G[facility]EN Stop: 01/27/23 08:59 Last Admin: 12/28/22 07:47 Dose: 81 mg Atorvastatin Calcium (Atorvastatin 40 Mg Tab) 80 mg PO HS G[facility]EN Stop: 01/26/23 20:59 Last Admin: 12/27/22 20:08 Dose: 80 mg Dextrose (Dextrose 50% 50 Ml Syringe) 25 - 50 ml IV UD PRN; Protocol PRN Reason: Hypoglycemia Protocol Stop: 01/26/23 12:30 Ezetimibe (Ezetimibe 10 Mg Tablet) 10 mg PO DAILY [facility]EN Stop: 01/27/23 08:59 Last Admin: 12/28/22 07:49 Dose: 10 mg Glucagon (Glucagon For Inj 1 Mg Vial) 1 mg SQ UD PRN; Protocol PRN Reason: Hypoglycemia Protocol Stop: 01/26/23 12:30 Glucose (Glucose 10 Tab/Tube) 4 - 8 tab PO UD PRN; Protocol PRN Reason: Hypoglycemia Treatment Stop: 01/26/23 12:30 Glucose (Glucose 40% Gel 15 Gm Tube) 15 - 30 gm PO UD PRN; Protocol PRN Reason: Hypoglycemia Protocol Stop: 01/26/23 12:30 Hydrochlorothiazide (Hydrochlorothiazide 25 Mg Tab) 12.5 mg PO DAILY G[facility]EN Stop: 01/27/23 08:59 Last Admin: 12/28/22 07:47 Dose: 12.5 mg Insulin Aspart (Insulin Aspart Per Unit Charge) 0 units SC ACHS [facility] Stop: 01/26/23 12:30 Last Admin: 12/28/22 08:53 Dose: 5 units Lisinopril (Lisinopril 10 Mg Tab) 10 mg PO DAILY [facility] Stop: 01/27/23 08:59 Last Admin: 12/28/22 07:48 Dose: 10 mg Metoprolol Succinate (Metoprolol Succ 25mg Ext Rel Tab) 25 mg PO BID [facility] Stop: 06/25/23 20:59 Last Admin: 12/28/22 09:23 Dose: 25 mg Miscellaneous (Carbohydrates For Hypoglycemia ) 15 - 30 gm PO UD PRN PRN Reason: Hypoglycemia Protocol Stop: 01/26/23 12:30 Miscellaneous (Farxiga 10mg--Order Awaiting Action) 1 each N/A QS [facility] Stop: 01/26/23 15:59 Last Admin: 12/28/22 07:46 Dose: Not Given Ondansetron HCl (Ondansetron Inj 2 Mg/Ml 2 Ml Vial) 4 mg IV Q4H PRN PRN Reason: Nausea And Vomiting Stop: 01/26/23 12:30
[2022-12-28] MEDS: AMIODARONE 200 MG TAB PO SCH ×2 (12:02→18:15)
--- NOTE | 2022-12-28 16:16 | Hospitalist Progress Note ---
Date of Service December 28, 2022 Assessment & Plan (1) Exertional angina: (2) Paroxysmal A-fib: Plan 77-year-old male with PMH of CAD status post CABG x2 in 2008, NSTEMI, chronic systolic heart failure, HTN, HLD, paroxysmal A-fib, DM type II who was recently admitted in November 2022 for NSTEMI and A flutter at [facility] and was life flighted to [facility] where he underwent cardiac cath on 11/08/2022 which showed critical [place] vessel disease with total occlusion of the mid LAD, mid left circumflex and RCA. Additionally the patient underwent cardioversion following the cath with return to normal sinus rhythm. He was discharged home 11/10/2022, felt good for 7 to 10 days and then started feeling irregular heartbeat and fatigue again. He is being managed for the following: () Exertional angina: () Paroxysmal A-fib: () CAD (coronary artery disease): - Last echo was reviewed showing EF of 35-39%, large sized inferior, posterior and lateral wall motion abnormality with hypokinesis to akinesis of the segments. Mild aortic valve regur present, mild mitral regurg present - c/w med tele, trops flat trend. EKG reviewed. - Status post successful cardioversion on 12/27, continue with home Eliquis. - Cardiology on board, appreciate recommendation. Optimizing cardiac meds, metoprolol on hold, plan for amiodarone and telemetry monitoring. - Hold on carvedilol 6.25 mg BID, diltiazem 180 mg daily -- may consider adjusting carvedilol and diltiazem to metoprolol and amiodarone -- will defer to cards. - Cont lisinopril 10 mg daily, eliquis 5 mg BID, baby aspirin () DM II (diabetes mellitus, type II), controlled: ISS with accuchecks achs DVT ppx: eliquis CODE : Full code Dispo: pcu/tele. Admission and Anticipated Discharge Date Admission Date: December 27, 2022 Subjective Patient seen and examined at bedside as a follow-up of exertional angina, paroxysmal A-fib. Patient was sitting up in chair, on room air, NAD, reports no new acute event overnight, reports eating okay and moving bowels okay, denies any further chest pressure, denies any palpitation or chest pain or headache or dizziness. Reports feeling better. Overnight, his heart rate was noted to be low in 40s and hence amiodarone drip was held. Physical Exam Physical Exam: GENERAL: Alert and oriented x3. NAD, on RA. HEENT: No pallor, no icterus. Pupils equal, round and reactive to light. Oral mucosa moist. NECK: No JVD, no neck masses. HEART: S1 and S2 heard. Regular rate and rhythm. No murmur, no gallop. RESPIRATORY SYSTEM: Normal AP diameter. No accessory muscle use. No wheezing, no crackles. ABDOMEN: Soft, bowel sounds present, nontender, no distention. CENTRAL NERVOUS SYSTEM: No facial droop. Speech is clear. Obeys simple commands. Moves extremities. EXTREMITIES: No edema, no erythema seen. Results & Data Results & Data Vital Signs (Past 12 Hours) Vital Signs Temp Pulse Pulse Resp BP Pulse Ox O2 Del Method 12/28/22 15:43 36.6 C 49 L 19 117/54 L 99 Room Air 12/28/22 08:00 60 12/28/22 11:40 36.4 C L 48 L 19 145/72 H 98 Room Air 12/28/22 07:49 36.5 C 47 L 19 124/72 97 Room Air 12/28/22 05:29 36.4 C L 50 L 18 138/70 97 Room Air
[2022-12-28] MEDS: ATORVASTATIN 40 MG TAB PO SCH (20:09)
[2022-12-29 06:30] LABS: Hematocrit (blood only) 37.6 % (42.0-52.0); Hemoglobin 12.2 g/dl (14.0-18.0); Mean Corpuscular Hemoglobin 30.7 pg (25.0-34.0); Mean Corpuscular Hgb Conc 32.4 g/dL (32.0-36.0); Mean Corpuscular Volume 94.5 fL (80.0-100.0); Mean Platelet Volume 10.1 fL (9.4-12.4); Platelet Count 177 K/uL (130-400); RDW Coefficient of Variation 13.5 % (11.5-14.5); RDW Standard Deviation 47.1 fL (36.4-46.3); Red Blood Count 3.98 M/uL (4.70-6.10); White Blood Count 7.33 K/ul (4.8-10.8)
[2022-12-29 06:37] LABS: BUN Creatinine Ratio 29.1 (10-20); Calcium 8.6 mg/dl (8.6-10.3); Creatinine Clr Calc Pharmacy 27.2 ml/min; Est GFR (African American) 34.5 ml/min; Est GFR (Non-African American) 29.7 ml/min; Phosphorus 3.8 mg/dl (2.5-4.9); Potassium 4.4 mmol/L (3.5-5.1)
[2022-12-29] MEDS: hydroCHLOROthiazide 25 MG TAB PO SCH (08:00)
[2022-12-29] MEDS: FARXIGA 10 MG PO SCH (08:00)
[2022-12-29] MEDS: ASPIRIN 81 MG ECTAB PO SCH (08:00)
[2022-12-29] MEDS: APIXABAN 5 MG TABLET PO SCH ×2 (08:00→20:18)
[2022-12-29] MEDS: EZETIMIBE 10 MG TABLET PO SCH (08:00)
[2022-12-29] MEDS: AMIODARONE 200 MG TAB PO SCH ×3 (08:00→17:11)
[2022-12-29] MEDS: INSULIN ASPART PER UNIT CHARGE SC SCH ×4 (08:01→21:22)
[2022-12-29] MEDS: lisinopril 10 MG TAB PO SCH (08:01)
[2022-12-29] MEDS ORDERED: FARXIGA 10 MG PO SCH (09:00)
[2022-12-29] MEDS: SODIUM CHLORIDE 0.45 % 1,000 ML IV SCH ×2 (09:33→22:17)
--- NOTE | 2022-12-29 12:16 | Cardiology Progress Note ---
Date of Service December 29, 2022 Assessment & Plan (1) Exertional angina: (2) CAD (coronary artery disease): (3) Paroxysmal A-fib: Plan The patient remains in sinus rhythm however he is got a prolonged AV interval and is bradycardic most of the time with heart rates in the 40s. His metoprolol is on hold. He is currently being loaded with amiodarone. I think he should remain on telemetry. The patient ultimately may require pacemaker. Admission and Anticipated Discharge Date Admission Date: December 28, 2022 Subjective The patient is sitting in a chair. No complaints. No complaints of dizziness or lightheadedness. Review of Systems Review of Systems: Review of Systems: See HPI for pertinent positives. All other 10 point review of systems are negative. Physical Exam Physical Exam: General: no acute distress and stated age Head: normocephalic, no masses, lesions, tenderness or abnormalities Eyes: conjunctiva are pink and non-injected, sclera clear Neck: supple, no adenopathy, no bruits, normal jugular venous pulse, no hepatojugular reflux Chest: normal shape and normal respiratory effort Lungs: clear to auscultation and percussion Cardiac Exam: - regular rate & rhythm, no murmurs gallops or rubs - normal S1, normal S2 Pulses: 2(+) throughout Abdomen: abdomen soft, non-tender, no abnormal masses and no hepatosplenomegaly Musculoskeletal: no gait disturbance, no joint inflammation, no deforming arthritis Extremities: no edema and no cyanosis Neuro: grossly normal exam Results & Data Vital Signs (Past 12 Hours) Vital Signs Temp Pulse Pulse Resp BP Pulse Ox O2 Del Method 12/29/22 11:43 36.5 C 50 L 18 126/68 99 Room Air 12/29/22 08:18 36.4 C L 72 20 130/74 95 Room Air 12/29/22 07:42 47 L 12/29/22 03:00 36.5 C 53 L 19 102/53 L 96 Room Air Laboratory Results Laboratory Results - last 24 hr 12/28/22 12/28/22 12/29/22 16:55 20:15 05: WBC 7.33 RBC 3.98 L Hgb 12.2 L Hct 37.6 L MCV 94.5 MCH 30.7 MCHC 32.4 RDW Std Deviation 47.1 H RDW Coeff of Katelyn 13.5 Plt Count 177 MPV 10.1 Sodium Potassium Chloride Carbon Dioxide Anion Gap BUN Creatinine Est Cr Clr Drug Dosing Est GFR ( Amer) Est GFR (Non-Af Amer) BUN/Creatinine Ratio Glucose POC Glucose 131 H 273 H Calcium Phosphorus Magnesium 12/29/22 12/29/22 12/29/22 05:28 07:50 11:15 WBC RBC Hgb Hct MCV MCH MCHC RDW Std Deviation RDW Coeff of Katelyn Plt Count MPV Sodium 137 Potassium 4.4 Chloride 108 H Carbon Dioxide 24 Anion Gap 5 BUN 60 H Creatinine 2.06 H D Est Cr Clr Drug Dosing 27.2 Est GFR ( Amer) 34.5 Est GFR (Non-Af Amer) 29.7 BUN/Creatinine Ratio 29.1 H Glucose 142 H POC Glucose 150 H 291 H Calcium 8.6 Phosphorus 3.8 Magnesium 2.0 Medications Administered Current Inpatient Medications Acetaminophen (Acetaminophen 325 Mg Tab) 650 mg PO Q4H PRN PRN Reason: Moderate Pain (Scale 4, 5, 6) Stop: 01/26/23 12:30 Amiodarone HCl (Amiodarone 200 Mg Tab) 200 mg PO TIDM [facility] Stop: 01/27/23 11:59 Last Admin: 12/29/22 11:52 Dose: 200 mg Apixaban (Apixaban 5 Mg Tablet) 5 mg PO BID [facility] Stop: 01/26/23 20:59 Last Admin: 12/29/22 08:00 Dose: 5 mg Aspirin (Aspirin 81 Mg Ectab) 81 mg PO DAILY [facility] Stop: 01/27/23 08:59 Last Admin: 12/29/22 08:00 Dose: 81 mg Atorvastatin Calcium (Atorvastatin 40 Mg Tab) 80 mg PO HS [facility] Stop: 01/26/23 20:59 Last Admin: 12/28/22 20:09 Dose: 80 mg Dextrose (Dextrose 50% 50 Ml Syringe) 25 - 50 ml IV UD PRN; Protocol PRN Reason: Hypoglycemia Protocol Stop: 01/26/23 12:30 Ezetimibe (Ezetimibe 10 Mg Tablet) 10 mg PO DAILY [facility] Stop: 01/27/23 08:59 Last Admin: 12/29/22 08:00 Dose: 10 mg Glucagon (Glucagon For Inj 1 Mg Vial) 1 mg SQ UD PRN; Protocol PRN Reason: Hypoglycemia Protocol Stop: 01/26/23 12:30 Glucose (Glucose 10 Tab/Tube) 4 - 8 tab PO UD PRN; Protocol PRN Reason: Hypoglycemia Treatment Stop: 01/26/23 12:30 Glucose (Glucose 40% Gel 15 Gm Tube) 15 - 30 gm PO UD PRN; Protocol PRN Reason: Hypoglycemia Protocol Stop: 01/26/23 12:30 Hydrochlorothiazide (Hydrochlorothiazide 25 Mg Tab) 12.5 mg PO DAILY [facility] Stop: 01/27/23 08:59 Last Admin: 12/29/22 08:00 Dose: 12.5 mg Sodium Chloride (1/2 Nss) 1,000 mls @ 75 mls/hr IV .[id number] [facility] Stop: 12/30/22 11:39 Last Admin: 12/29/22 09:33 Dose: 75 mls/hr Insulin Aspart (Insulin Aspart Per Unit Charge) 0 units SC ACHS [facility] Stop: 01/26/23 12:30 Last Admin: 12/29/22 11:51 Dose: 11 units Lisinopril (Lisinopril 10 Mg Tab) 10 mg PO DAILY [facility] Stop: 01/27/23 08:59 Last Admin: 12/29/22 08:01 Dose: 10 mg Metoprolol Succinate (Metoprolol Succ 25mg Ext Rel Tab) 25 mg PO BID [facility] Stop: 01/26/23 20:59 Last Admin: 12/28/22 09:23 Dose: 25 mg Miscellaneous (Carbohydrates For Hypoglycemia ) 15 - 30 gm PO UD PRN PRN Reason: Hypoglycemia Protocol Stop: 01/26/23 12:30 Farxiga 10mg- Non- Formulary Patient's Own Med 1 each PO DAILY [facility] Stop: 01/28/23 08:59 Last Admin: 12/29/22 08:00 Dose: 10 mg Ondansetron HCl (Ondansetron Inj 2 Mg/Ml 2 Ml Vial) 4 mg IV Q4H PRN PRN Reason: Nausea And Vomiting Stop: 01/26/23 12:30
--- NOTE | 2022-12-29 15:42 | Hospitalist Progress Note ---
Date of Service December 29, 2022 Assessment & Plan (1) Exertional angina: (2) Paroxysmal A-fib: Plan 77-year-old male with PMH of CAD status post CABG x2 in 2008, NSTEMI, chronic systolic heart failure, HTN, HLD, paroxysmal A-fib, DM type II who was recently admitted in November 2022 for NSTEMI and A flutter at [facility] and was life flighted to [facility] where he underwent cardiac cath on 11/08/2022 which showed critical [place] vessel disease with total occlusion of the mid LAD, mid left circumflex and RCA. Additionally the patient underwent cardioversion following the cath with return to normal sinus rhythm. He was discharged home 11/10/2022, felt good for 7 to 10 days and then started feeling irregular heartbeat and fatigue again. He is being managed for the following: () Exertional angina: () Paroxysmal A-fib: () CAD (coronary artery disease): - Last echo was reviewed showing EF of 35-39%, large sized inferior, posterior and lateral wall motion abnormality with hypokinesis to akinesis of the segments. Mild aortic valve regur present, mild mitral regurg present - c/w med tele, trops flat trend. EKG reviewed. - Status post successful cardioversion on 12/27, continue with home Eliquis. - Cardiology on board, appreciate recommendation. Optimizing cardiac meds, home diltiazem and carvedilol on hold, metoprolol was placed early in admission which is on hold. Being loaded with amiodarone. Continue telemetry monitoring. - Cont lisinopril 10 mg daily, eliquis 5 mg BID, baby aspirin; consider holding Eliquis if plan for pacemaker placement. MT over CKD stage III: Outpatient chart reviewed with creatinine baseline of 1.4-1.7, creatinine 2.06 today. We will hold nephrotoxic's. Gentle IV fluid hydration. BMP in AM. () DM II (diabetes mellitus, type II), controlled: ISS with accuchecks achs DVT ppx: eliquis CODE : Full code Dispo: pcu/tele. Admission and Anticipated Discharge Date Admission Date: December 28, 2022 Subjective Patient seen and examined at bedside as a follow-up of exertional angina, paroxysmal A-fib. Patient was sitting up in chair, on room air, NAD, reports no new acute event overnight, reports eating okay and moving bowels okay, denies any further chest pressure, denies any palpitation or chest pain or headache or dizziness. Re ports feeling better. Physical Exam Physical Exam: GENERAL: Alert and oriented x3. NAD, on RA. HEENT: No pallor, no icterus. Pupils equal, round and reactive to light. Oral mucosa moist. NECK: No JVD, no neck masses. HEART: S1 and S2 heard. Regular rate and rhythm. No murmur, no gallop. RESPIRATORY SYSTEM: Normal AP diameter. No accessory muscle use. No wheezing, no crackles. ABDOMEN: Soft, bowel sounds present, nontender, no distention. CENTRAL NERVOUS SYSTEM: No facial droop. Speech is clear. Obeys simple commands. Moves extremities. EXTREMITIES: No edema, no erythema seen. Results & Data Results & Data Vital Signs (Past 12 Hours) Vital Signs Temp Pulse Pulse Resp BP Pulse Ox O2 Del Method 12/29/22 11:43 36.5 C 50 L 18 126/68 99 Room Air 12/29/22 08:18 36.4 C L 72 20 130/74 95 Room Air 12/29/22 07:42 47 L
[2022-12-29] MEDS: ATORVASTATIN 40 MG TAB PO SCH (20:19)
[2022-12-30 06:19] LABS: BUN Creatinine Ratio 24.7 (10-20); Calcium 8.5 mg/dl (8.6-10.3); Creatinine Clr Calc Pharmacy 28.9 ml/min; Est GFR (African American) 37.1 ml/min; Potassium 4.6 mmol/L (3.5-5.1)
[2022-12-30] MEDS: INSULIN ASPART PER UNIT CHARGE SC SCH ×3 (08:03→17:12)
[2022-12-30] MEDS: FARXIGA 10 MG PO SCH (08:04)
[2022-12-30] MEDS: EZETIMIBE 10 MG TABLET PO SCH (08:05)
[2022-12-30] MEDS: APIXABAN 5 MG TABLET PO SCH (08:05)
[2022-12-30] MEDS: ASPIRIN 81 MG ECTAB PO SCH (08:05)
[2022-12-30] MEDS: AMIODARONE 200 MG TAB PO SCH ×3 (08:05→17:11)
[2022-12-30] MEDS: SODIUM CHLORIDE 0.45 % 1,000 ML IV SCH (11:26)
--- NOTE | 2022-12-30 11:37 | Cardiology Progress Note ---
Date of Service December 30, 2022 Assessment & Plan (1) Exertional angina: (2) CAD (coronary artery disease): (3) Paroxysmal A-fib: Plan The patient's heart rates have somewhat improved with the discontinuation of metoprolol but he continues to be bradycardic with heart rates in the 50s with a first-degree AV block. He is clinically stable. Not symptomatic with his bradycardia and maintaining sinus rhythm after cardioversion. The patient can potentially be discharged and if he is we will arrange follow-up with EP service as an outpatient. Admission and Anticipated Discharge Date Admission Date: December 28, 2022 Subjective The patient is sitting in a chair without complaints. He is moving easily around his room. Review of Systems Review of Systems: Review of Systems: See HPI for pertinent positives. All other 10 point review of systems are negative. Physical Exam Physical Exam: General: no acute distress and stated age Head: normocephalic, no masses, lesions, tenderness or abnormalities Eyes: conjunctiva are pink and non-injected, sclera clear Neck: supple, no adenopathy, no bruits, normal jugular venous pulse, no hepatojugular reflux Chest: normal shape and normal respiratory effort Lungs: clear to auscultation and percussion Cardiac Exam: - regular rate & rhythm, no murmurs gallops or rubs - normal S1, normal S2 Pulses: 2(+) throughout Abdomen: abdomen soft, non-tender, no abnormal masses and no hepatosplenomegaly Musculoskeletal: no gait disturbance, no joint inflammation, no deforming arthritis Extremities: no edema and no cyanosis Neuro: grossly normal exam Results & Data Vital Signs (Past 12 Hours) Vital Signs Temp Pulse Pulse Resp BP Pulse Ox O2 Del Method 12/30/22 10:49 36.9 C 51 L 20 125/65 98 Room Air 12/30/22 07:14 36.9 C 50 L 20 144/58 H 98 Room Air 12/30/22 07:02 47 L 12/30/22 03:00 36.3 C L 53 L 21 125/70 98 Room Air Laboratory Results Laboratory Results - last 24 hr 12/29/22 12/29/22 12/30/22 16:02 20:24 05:25 Sodium 138 Potassium 4.6 Chloride 108 H Carbon Dioxide 26 Anion Gap 4 BUN 48 H Creatinine 1.94 H Est Cr Clr Drug Dosing 28.9 Est GFR ( Amer) 37.1 Est GFR (Non-Af Amer) 32.0 BUN/Creatinine Ratio 24.7 H Glucose 106 H POC Glucose 80 133 H Calcium 8.5 L 12/30/22 12/30/22 12/30/22 07:22 11:13 11:14 Sodium Potassium Chloride Carbon Dioxide Anion Gap BUN Creatinine Est Cr Clr Drug Dosing Est GFR ( Amer) Est GFR (Non-Af Amer) BUN/Creatinine Ratio Glucose POC Glucose 107 H 336 H* 289 H Calcium Medications Administered Current Inpatient Medications Acetaminophen (Acetaminophen 325 Mg Tab) 650 mg PO Q4H PRN PRN Reason: Moderate Pain (Scale 4, 5, 6) Stop: 01/26/23 12:30 Amiodarone HCl (Amiodarone 200 Mg Tab) 200 mg PO TIDM [facility] Stop: 01/27/23 11:59 Last Admin: 12/30/22 11:26 Dose: 200 mg Apixaban (Apixaban 5 Mg Tablet) 5 mg PO BID [facility] Stop: 01/26/23 20:59 Last Admin: 12/30/22 08:05 Dose: 5 mg Aspirin (Aspirin 81 Mg Ectab) 81 mg PO DAILY [facility] Stop: 01/27/23 08:59 Last Admin: 12/30/22 08:05 Dose: 81 mg Atorvastatin Calcium (Atorvastatin 40 Mg Tab) 80 mg PO HS [facility] Stop: 01/26/23 20:59 Last Admin: 12/29/22 20:19 Dose: 80 mg Dextrose (Dextrose 50% 50 Ml Syringe) 25 - 50 ml IV UD PRN; Protocol PRN Reason: Hypoglycemia Protocol Stop: 01/26/23 12:30 Ezetimibe (Ezetimibe 10 Mg Tablet) 10 mg PO DAILY [facility] Stop: 01/27/23 08:59 Last Admin: 12/30/22 08:05 Dose: 10 mg Glucagon (Glucagon For Inj 1 Mg Vial) 1 mg SQ UD PRN; Protocol PRN Reason: Hypoglycemia Protocol Stop: 01/26/23 12:30 Glucose (Glucose 10 Tab/Tube) 4 - 8 tab PO UD PRN; Protocol PRN Reason: Hypoglycemia Treatment Stop: 01/26/23 12:30 Glucose (Glucose 40% Gel 15 Gm Tube) 15 - 30 gm PO UD PRN; Protocol PRN Reason: Hypoglycemia Protocol Stop: 01/26/23 12:30 Hydrochlorothiazide (Hydrochlorothiazide 25 Mg Tab) 12.5 mg PO DAILY [facility] Stop: 01/27/23 08:59 Last Admin: 12/29/22 08:00 Dose: 12.5 mg Sodium Chloride (1/2 Nss) 1,000 mls @ 75 mls/hr IV .[id number] [facility] Stop: 12/31/22 14:19 Last Admin: 12/30/22 11:26 Dose: 75 mls/hr Insulin Aspart (Insulin Aspart Per Unit Charge) 0 units SC ACHS [facility] Stop: 01/26/23 12:30 Last Admin: 12/30/22 08:03 Dose: 4 units Lisinopril (Lisinopril 10 Mg Tab) 10 mg PO DAILY [facility] Stop: 01/27/23 08:59 Last Admin: 12/29/22 08:01 Dose: 10 mg Metoprolol Succinate (Metoprolol Succ 25mg Ext Rel Tab) 25 mg PO BID [facility] Stop: 01/26/23 20:59 Last Admin: 12/28/22 09:23 Dose: 25 mg Miscellaneous (Carbohydrates For Hypoglycemia ) 15 - 30 gm PO UD PRN PRN Reason: Hypoglycemia Protocol Stop: 01/26/23 12:30 Farxiga 10mg- Non- Formulary Patient's Own Med 1 each PO DAILY [facility] Stop: 01/28/23 08:59 Last Admin: 12/30/22 08:04 Dose: 10 mg Ondansetron HCl (Ondansetron Inj 2 Mg/Ml 2 Ml Vial) 4 mg IV Q4H PRN PRN Reason: Nausea And Vomiting Stop: 01/26/23 12:30
--- NOTE | 2022-12-30 13:21 | Discharge Summary ---
Date of Service December 30, 2022 Admission HPI Per Admitting Provider This is a 77-year-old male with PMHx of CAD status post double CABG in 2008, history of NSTEMI, acute on chronic systolic heart failure, HTN, HLD, paroxysmal A-fib, DM type II. Patient was recently hospitalized beginning of November 2022 for chest pain and dyspnea which was found to be NSTEMI and in a flutter at [facility] and was life flighted to [facility]. He was treated medically overnight with aggressive diuresis. He underwent a cardiac cath on 11/08/2022 which showed critical red cliff vessel disease with total occlusion of the mid LAD, mid left circumflex, and RCA. Orta to LAD was patent. There was a distal lesion in the red cliff LAD after the touchdown of the LIMAbut felt to be too distal for meaningful pursuit. The SVG was occluded. His RCA and L circumflex territories were supplied by collaterals from his orta to LAD. Additionally the patient underwent cardioversion following the cath with return to normal sinus rhythm. He was discharged home on 11/10/22. Pt had felt good for about 7- 10 days, and then started feeling irregular heartbeat and fatigue again. Pt was in to see his cardiology and had blood work recently, on review this past Friday states liver function was elevated (however today are normal), and he was in to see the doctor today for review of this. While in the office, he is having EKG changes showing aflutter. Today the patient presents with on afib within the past 7-8 days. He noticed lightheadedness and dizziness. No falls but admits to having weakness which is much worse in this same timeframe. His HR has been under 100 but his BP has been low. He feels better when his bp is around 135. He has been working with adjusting some of his medications, believers he was recently taken off spironolactone this past Friday. He admits to having chest tightness even this morning and took a nitro tablet. He has used nitro about 4 times in the past 7-8days whenever gets similar symptoms. He denies any specific chest pain but this chest pressure is similar to his recent heart attack, but that day was much worse. He has had shortness of breath, nausea, denies vomiting, diarrhea, constipation, or abdominal pain. Denies fever chills sweats. Admission Exam Per Admitting Provider General: awake, alert, no apparent distress Head: Normocephalic, atraumatic ENT: PERRL, EOMI, no pharyngeal exudate, mucous membranes moist Chest: Clear to auscultation, on room air, no adventitious breath sounds Cardiac: Irregular, HR in mid 70s, no murmur, no JVD, normal peripheral pulses, good capillary refill Abdominal: NABS x 4 quadrants, soft, nondistended, nontender to palpation, no rebound or guarding Extremities: Normal inspection, no peripheral edema or erythema, calfs nontender to palpation Psych: Normal mood and affect Neuro: AAO x 3, strength intact bilaterally and rated 5/5, no motor deficits, speech is clear, no peripheral sensory deficits Principal Diagnosis Exertional angina Paroxysmal A-fib MT over CKD stage III Discharge Exam GENERAL: Alert and oriented x3. NAD, on RA. HEENT: No pallor, no icterus. Pupils equal, round and reactive to light. Oral mucosa moist. NECK: No JVD, no neck masses. HEART: S1 and S2 heard. Regular rate and rhythm. No murmur, no gallop. RESPIRATORY SYSTEM: Normal AP diameter. No accessory muscle use. No wheezing, no crackles. ABDOMEN: Soft, bowel sounds present, nontender, no distention. CENTRAL NERVOUS SYSTEM: No facial droop. Speech is clear. Obeys simple commands. Moves extremities. EXTREMITIES: No edema, no erythema seen. Discharge Data Allergies Allergy/AdvReac Type Severity Reaction Status Date / Time No Known Allergies Allergy Unverified 12/27/22 12:55 Consultations 12/27/22 10:59 ED Decision to Admit Stat 12/27/22 12:31 Consult Cardiology Routine Procedures Performed Operation Date: 12/27/22 13:00 Actual Procedures p Cardioversion - Roel Ramírez DO Hospital Course (1) Exertional angina: (2) Paroxysmal A-fib: Plan 77-year-old male with PMH of CAD status post CABG x2 in 2008, NSTEMI, chronic systolic heart failure, HTN, HLD, paroxysmal A-fib, DM type II who was recently admitted in November 2022 for NSTEMI and A flutter at [facility] and was life flighted to [facility] where he underwent cardiac cath on 11/08/2022 which showed critical red cliff vessel disease with total occlusion of the mid LAD, mid left circumflex and RCA. Additionally the patient underwent cardioversion following the cath with return to normal sinus rhythm. He was discharged home 11/10/2022, felt good for 7 to 10 days and then started feeling irregular heartbeat and fatigue again. He was managed for the following: () Exertional angina: () Paroxysmal A-fib: () CAD (coronary artery disease): - Last echo was reviewed showing EF of 35-39%, large sized inferior, posterior and lateral wall motion abnormality with hypokinesis to akinesis of the segments. Mild aortic valve regur present, mild mitral regurg present - c/w med tele, trops flat trend. EKG reviewed. - Status post successful cardioversion on 12/27, continue with home Eliquis. - Cardiology on board, appreciate recommendation. Optimizing cardiac meds, home diltiazem and carvedilol dc'd, amiodarone 200 mg BIDM on DC. - Cont eliquis 5 mg BID, baby aspirin. MT over CKD stage III: Outpatient chart reviewed with creatinine baseline of 1.4-1.7, creatinine elevated. We will hold nephrotoxic's. Gentle IV fluid hydration until late today prior to DC. f/u w/ pcp within a week time and likely BMP and discuss about resuming lisinopril and HCTZ at that time. () DM II (diabetes mellitus, type II), controlled: ISS with accuchecks achs DVT ppx: eliquis CODE : Full code Patient being discharged home with following instruction at the point of discharge: Follow-up with your primary care physician within a week time and likely you will need labs CBC/CMP/magnesium/phosphorus. Follow-up with cardiology in 1 to 2 weeks time upon discharge and likely you will be referred to EP test pilot for pacemaker placement evaluation. Your heart medications have been optimized. Your home diltiazem and carvedilol were discontinued. You are started on amiodarone. Continue to hold your lisinopril and hydrochlorothiazide for 2 to 3 days, follow-up with your PCP within a week time and discuss regarding resuming these medications. Take your medications as prescribed. Please make sure that you are able to get your medications today by calling your pharmacy before you leave the hospital so that your treatment continuity is not broken. Home Health Attestation I certify that this patient is under my care and that I, or a physicians practice assistant working with me, had a face to-face encounter that meets the home health [id number] encounter requirements with this patient. The encounter with the patient was in whole, or in part, for the following medical condition, which is the primary reason for home health care (list medical condition): I certify that, based on my findings, the following services are medically necessary home health services: My clinical findings support the need for the above services because: Further, I certify that my clinical findings support that this patient is homebound (i.e. absences from home require considerable and taxing effort and are for medical reasons or sabianism services or infrequently or of short duration when for other reasons) because: Certification for Home Health Services: Based on the above findings, I certify that this patient is confined to the home and needs intermittent residential care, physical therapy and/or speech therapy or continues to need occupational therapy. The patient is under my care, and I have initiated the establishment of the plan of care. This patient will be followed by a physician who will periodically review the plan of care. Total Time Total Time Spent Total Time Spent (In Minutes): 45 Discharge Plan Discharge Items Patient Disposition: Home - Self-Care Reason For Visit: AFLUTTER Discharge Diagnosis: Exertional angina Paroxysmal A-fib MT over CKD stage III Activity: Resume your previous activity Non-emergency contact: Primary Care Provider Call non-emergency contact if: you have any medication questions, your symptoms worsen and your temperature is above 101 Follow-up/Referrals: PCP,NO [Primary Care Provider] - Diet: Carb Consistent or DM2 and Heart Healthy Addtl Attending Provider Instructions: Follow-up with your primary care physician within a week time and likely you will need labs CBC/CMP/magnesium/phosphorus. Follow-up with cardiology in 1 to 2 weeks time upon discharge and likely you will be referred to EP test pilot for pacemaker placement evaluation. Your heart medications have been optimized. Your home diltiazem and carvedilol were discontinued. You are started on amiodarone. Continue to hold your lisinopril and hydrochlorothiazide for 2 to 3 days, follow-up with your PCP within a week time and discuss regarding resuming these medications. Take your medications as prescribed. Please make sure that you are able to get your medications today by calling your pharmacy before you leave the hospital so that your treatment continuity is not broken. Pending Studies at Discharge: No Stand-Alone Forms: My [facility] [address], Smoking Cessation Medications and DC Order Prescriptions: New amiodarone 200 mg Tablet 200 mg PO BIDM Qty: 60 0RF Continued atorvastatin 80 mg tablet 80 mg PO HS aspirin [Adult Low Dose Aspirin] 81 mg tablet,delayed release (DR/EC) 81 mg PO DAILY metformin 1,000 mg tablet 1,000 mg PO QAM Rx Instructions: Per pt he takes 1 tab am nitroglycerin 0.4 mg tablet, sublingual See Rx Instructions .ROUTE .COMPLEX Rx Instructions: 0.4 mg sublingual RX instructions say to see attached for details. ezetimibe 10 mg tablet 10 mg PO DAILY Eliquis 5 mg tablet 5 mg PO BID Farxiga 10 mg tablet 10 mg PO DAILY metformin 500 mg Tablet 500 mg PO QPM Held lisinopril 10 mg tablet 10 mg PO DAILY Hold Instructions: Resume on 01/02/23. dicuss with pcp office in a week time regardin resuming this med hydrochlorothiazide 12.5 mg capsule 12.5 mg PO DAILY Hold Instructions: Resume on 01/02/23. dicuss with pcp office in a week time regardin resuming this med Discontinued carvedilol 6.25 mg tablet 6.25 mg PO BID diltiazem HCl 180 mg capsule,extended release 24hr 180 mg PO DAILY Discharge Orders: Discharge Order (Routine); Ordered 12/30/22 Ordered By: Judah Amezcua/Other Patient Handouts: Managing Type 2 Diabetes Admission Data Admit Date/Time: 12/28/22 16:02 Attending Provider: Judah Chawla Admit Provider: Jeffrey Carpio Primary Care Provider: PCP,NO Other Providers: Eunice Canas ; Roel Ramírez
--- NOTE | 2022-12-31 08:04 | Electrocardiogram Report ---
Test Reason : Blood Pressure : / mmHG Vent. Rate : 057 BPM Atrial Rate : 057 BPM P-R Int : 330 ms QRS Dur : 108 ms QT Int : 436 ms P-R-T Axes : -14 007 177 degrees QTc Int : 424 ms Sinus bradycardia with 1st degree A-V block Abnormal ECG When compared with ECG of 27-DEC-2022 13:49, Premature atrial complexes are no longer Present Confirmed by Patrick Vidal ([id number]) on 12/31/2022 8:03:31 AM Referred By: REFERRED SELF Confirmed By:Patrick Vidal
== END 2022-12-30 17:14 | disposition home or self-care (01) | DRG 309 ==
LOC: ED 08:19 → 2S 08:19 → SUATTDRO 11:24 → 2S 12:11
DX: I44.0 Atrioventricular block, first degree; N18.32 Chronic kidney disease, stage 3b; I25.2 Old myocardial infarction; E11.22 Type 2 diabetes mellitus with diabetic chronic kidney disease; I48.92 Unspecified atrial flutter; N17.9 Acute kidney failure, unspecified; Z20.822 Contact with and (suspected) exposure to COVID-19; Z95.1 Presence of aortocoronary bypass graft; E78.5 Hyperlipidemia, unspecified; I25.5 Ischemic cardiomyopathy; Z79.899 Other long term (current) drug therapy; I25.118 Atherosclerotic heart disease of native coronary artery with other forms of angina pectoris; I13.0 Hypertensive heart and chronic kidney disease with heart failure and stage 1 through stage 4 chronic kidney disease, or unspecified chronic kidney disease; I48.0 Paroxysmal atrial fibrillation; Z79.82 Long term (current) use of aspirin; Z79.84 Long term (current) use of oral hypoglycemic drugs; Z79.01 Long term (current) use of anticoagulants; I50.22 Chronic systolic (congestive) heart failure

== ENCOUNTER 2023-01-11 12:59 | Inpatient (IN) ==
[2023-01-11 13:54] LABS: Basophils # (auto) 0.08 K/uL (0-0.2); Basophils % (auto) 0.8 %; Eosinophils # (auto) 0.07 K/uL (0-0.50); Eosinophils % (auto) 0.7 %; Hematocrit (blood only) 42.1 % (42.0-52.0); Hemoglobin 13.4 g/dl (14.0-18.0); Immature Granulocytes # (auto) 0.04 K/uL (0.01-0.20); Immature Granulocytes % (auto) 0.4 %; Lymphocytes # (auto) 1.36 K/uL (1.2-3.4); Lymphocytes % (auto) 14.4 %; Mean Corpuscular Hemoglobin 30.6 pg (25.0-34.0); Mean Corpuscular Hgb Conc 31.8 g/dL (32.0-36.0); Mean Corpuscular Volume 96.1 fL (80.0-100.0); Mean Platelet Volume 10.1 fL (9.4-12.4); Monocytes # (auto) 0.78 K/uL (0.11-0.59); Monocytes % (auto) 8.2 %; Neutrophils # (auto) 7.14 K/uL (1.40-6.50); Neutrophils % (auto) 75.5 %; Platelet Count 242 K/uL (130-400); RDW Coefficient of Variation 14.1 % (11.5-14.5); RDW Standard Deviation 49.9 fL (36.4-46.3); Red Blood Count 4.38 M/uL (4.70-6.10); White Blood Count 9.47 K/ul (4.8-10.8)
[2023-01-11 14:02] LABS: Albumin Globulin Ratio 1.7 (0.9-2); Albumin Level 4.3 gm/dl (3.4-5.0); BUN Creatinine Ratio 13.2 (10-20); Bilirubin,Total 0.4 mg/dl (0.2-1.0); Calcium 9.4 mg/dl (8.6-10.3); Creatinine Clr Calc Pharmacy 21.8 ml/min; Est GFR (African American) 26.4 ml/min; Est GFR (Non-African American) 22.8 ml/min; Globulin 2.6 gm/dl (2.5-4.0); Magnesium 1.8 mg/dl (1.7-2.4); Potassium 5.1 mmol/L (3.5-5.1); Total Protein 6.9 gm/dl (6.0-8.3)
--- NOTE | 2023-01-11 14:36 | Emergency Department Note ---
Impression & Plan Junctional bradycardia, Medication side effects, Weakness Admit to [facility] ED Provider Note NAME: CHRIS MCNEIL AGE: 77 SEX: M ARRIVES VIA: Walk-In INFORMANT: Patient ED PROVIDER(S): Belkys Granado DO CHIEF COMPLAINT: Weakness and fatigue PLAN: Disposition: Admit to the [facility] Condition: Guarded MEDICAL DECISION MAKING: This is a 77-year-old male patient who presents to the emergency department with weakness and fatigue. Patient underwent cardioversion 2 weeks ago. Since that time, the patient has been doing well but today while at a farm show, he developed weakness and a headache. The fatigue became extreme. His friend brought him to the emergency department and the patient was noted to be significantly bradycardic with heart rates as low as 32. By history, it seems that the patient has been taking amiodarone and metoprolol and was restarted on diltiazem, amlodipine, and lisinopril. Laboratory studies revealed no leukocytosis. H&H are stable. Glucose was 219. BUN 34 and creatinine 2.5. Troponin which is mildly elevated. The patient was found to be in a junctional bradycardia. His symptoms were fairly minimal as long as he was lying in the bed. I discussed the case with the [facility] controls designer in the [facility] and he will be evaluated for further management. Triage Nursing notes reviewed and agree with them. External records reviewed including previous admissions with cardiology consulta tions Vital Signs: reviewed and bradycardia and hypertension Differential diagnosis: Overmedicated, junctional rhythm, symptomatic bradycardia, heart block ER treatment provided: Cardiac monitoring Twelve-lead EKG IV normal saline bolus IV normal saline drip Diagnostics interpreted by me: ECG: Junctional bradycardia at a rate of [address] segment depression in the lateral leads in 1 and aVL. There is no ectopy Repeat ECG:Cardiac Monitoring: Junctional bradycardia at 40 Laboratory studies: See below Imaging studies: As per my independent interpretation Portable chest x-ray: No acute pulmonary infiltrates or opacities. Consultations: Leonides Pizano-cardiology HPI: 77/M arrives for evaluation of weakness and fatigue. The patient was at a sale today when he was walking around and began to feel significantly weak and fatigued Patient felt his heart rate was slow and his friend brought him to the emergency department. PAST MEDICAL HISTORY:See Below; cardiac cath 6 weeks ago PAST SURGICAL HISTORY:Two-vessel CABG in 2009 FAMILY HISTORY:See Below SOCIAL HISTORY:See Below HOME MEDICATIONS:See list ALLERGIES:None VITALS:See Below PHYSICAL EXAMINATION: HEENT: Head - normocephalic and atraumatic. Pupils are equal, round, and reactive to light. Extraocular eye muscles are intact, and sclera are anicteric. Nose - moist nasal mucosa without discharge. Mouth - moist buccal mucosa. Oropharynx is nonerythematous and there is no tonsillar exudate or edema noted. Neck: Supple; no JVD, nuchal rigidity, cervical lymphadenopathy, or auscultated bruits. Heart: Bradycardic rate and regular rhythm there is a normal S1 and S2 with no murmurs, clicks, or gallops appreciated. Lungs: Clear to auscultation bilaterally with no wheezes, rales, or rhonchi. Abdomen: Soft, completely nontender, nondistended, with good bowel sounds. There are no palpable pulsatile masses or hepatosplenomegaly. There is no guarding, rigidity, or rebound noted. Extremities: No evidence of cyanosis, clubbing, or edema. There are easily palpable peripheral pulses. Skin: Pale and diaphoretic with good turgor and no rashes. ED COURSE: Times/Reassessments: 1305: Patient was evaluated in room B11. A complete history and physical was performed. A twelve-lead EKG was obtained as described above. An order was placed for continuous cardiac monitoring. The patient was in a sinus bradycardia at a rate of 40. An IV lock was initiated and labs were drawn as above. A portable chest x-ray was performed. The pacer pads were placed on the patient's chest in case his heart rate was too go any slower. I discussed the medications that the patient takes with him and his family. I reviewed the results of the labs and the x-ray with the patient and his famil y. I discussed the case with the [facility] Hospitalist and they will evaluate for further management. I discussed the case with the [facility] controls designer as well. Belkys Granado DO Past Med/Surg History Medical History Atrial flutter CAD (coronary artery disease) CKD (chronic kidney disease), stage III DM II (diabetes mellitus, type II), controlled HLD (hyperlipidemia) HTN (hypertension) Hx of cataract Paroxysmal A-fib Surgical History Hx of colonoscopy Hx of esophagogastroduodenoscopy S/P cardiac cath Family History Father Cancer Brother Lung disease Social History Smoking Status: Never smoker Hx Alcohol Use: No Hx Substance Use: No Preferred Language: Vietnamese Communication Ability: Effective Student Services Counselor Required: No Beliefs That Will Affect Care: None Current Living Situation: Family Feels Safe at Home: Yes Safety Concerns: Feels Safe At This Time Assistive Devices: None Allergies Allergies Allergy/AdvReac Type Severity Reaction Status Date / Time No Known Allergies Allergy Unverified 12/27/22 12:55 Home Meds Home Medications Medication Instructions Recorded Confirmed apixaban 5 mg tablet (Eliquis) 5 mg PO BID 12/27/22 01/11/23 aspirin 81 mg tablet,delayed 81 mg PO DAILY 12/27/22 01/11/23 release (Adult Low Dose Aspirin) atorvastatin 80 mg tablet 80 mg PO HS 12/27/22 01/11/23 dapagliflozin 10 mg tablet 10 mg PO DAILY 12/27/22 01/11/23 (Farxiga) ezetimibe 10 mg tablet 10 mg PO DAILY 12/27/22 01/11/23 nitroglycerin 0.4 mg sublingual See Rx Instructions .Route .COMPLEX 12/27/22 01/11/23 tablet amiodarone 200 mg tablet 200 mg PO DAILY 01/11/23 01/11/23 amlodipine 5 mg tablet 5 mg PO DAILY 01/11/23 01/11/23 diltiazem HCl 180 mg 180 mg PO DAILY 01/11/23 01/11/23 capsule,extended release 24 hr lisinopril 2.5 mg tablet 2.5 mg PO DAILY 01/11/23 01/11/23 metformin 1,000 mg tablet 1,000 mg PO QAM 01/11/23 01/11/23 metformin 1,000 mg tablet 500 mg PO PM 01/11/23 01/11/23 metoprolol succinate 50 mg 50 mg PO PM 01/11/23 01/11/23 tablet,extended release 24 hr Results & Data (ED) Vital Signs Vital Signs - 24 hr 01/11/23 13:00 01/11/23 13:09 01/11/23 13:27 Temperature 36.7 C Temperature Source Temporal Artery Scan Pulse Rate 40 L Pulse Rate [Apical] 42 L Pulse Rate from SpO2 Sensor Respiratory Rate 18 27 H Respiratory Effort / Characteristics Respiratory Depth Blood Pressure 136/61 Blood Pressure [Left Arm] 138/58 L Blood Pressure Mean 86 Blood Pressure Mean [Left Arm] 84 Blood Pressure Position [Left Arm] Semi-fowlers Pulse Oximetry 99 95 95 Oxygen Delivery Method Room Air Room Air Sepsis Recent Fever Within 48 Hours No Sepsis New/Unexplained Change in Mental Status No Sepsis Action Taken by Nursing No Action Required 01/11/23 13:17 01/11/23 14:00 01/11/23 15:03 Temperature Temperature Source Pulse Rate 39 L Pulse Rate [Apical] 40 L 38 L Pulse Rate from SpO2 Sensor Respiratory Rate 25 H 18 Respiratory Effort / Characteristics Non-Labored Respiratory Depth Normal Blood Pressure Blood Pressure [Left Arm] 123/63 125/67 Blood Pressure Mean Blood Pressure Mean [Left Arm] 83 86 Blood Pressure Position [Left Arm] Semi-fowlers Pulse Oximetry 95 95 Oxygen Delivery Method Room Air Room Air Sepsis Recent Fever Within 48 Hours Sepsis New/Unexplained Change in Mental Status Sepsis Action Taken by Nursing 01/11/23 15:30 01/11/23 15:30 01/11/23 16:00 Temperature Temperature Source Pulse Rate 35 L Pulse Rate [Apical] Pulse Rate from SpO2 Sensor 36 L Respiratory Rate 21 Respiratory Effort / Characteristics Respiratory Depth Blood Pressure 124/76 139/60 Blood Pressure [Left Arm] Blood Pressure Mean 100 102 Blood Pressure Mean [Left Arm] Blood Pressure Position [Left Arm] Pulse Oximetry 94 Oxygen Delivery Method Sepsis Recent Fever Within 48 Hours Sepsis New/Unexplained Change in Mental Status Sepsis Action Taken by Nursing 01/11/23 16:00 01/11/23 16:30 01/11/23 16:30 Temperature Temperature Source Pulse Rate 37 L 38 L Pulse Rate [Apical] Pulse Rate from SpO2 Sensor Respiratory Rate 19 15 Respiratory Effort / Characteristics Respiratory Depth Blood Pressure 133/62 Blood Pressure [Left Arm] Blood Pressure Mean 83 Blood Pressure Mean [Left Arm] Blood Pressure Position [Left Arm] Pulse Oximetry 96 96 Oxygen Delivery Method Room Air Room Air Sepsis Recent Fever Within 48 Hours Sepsis New/Unexplained Change in Mental Status Sepsis Action Taken by Nursing Laboratory Data 01/11/23 13:22 01/11/23 13:22 Lab Results 01/11/23 01/11/23 01/11/23 Range/Units 13:22 13:22 13:22 WBC 9.47 (4.8-10.8) K/ul RBC 4.38 L (4.70-6.10) M/uL Hgb 13.4 L (14.0-18.0) g/dl Hct 42.1 (42.0-52.0) % MCV 96.1 (80.0-100.0) fL MCH 30.6 (25.0-34.0) pg MCHC 31.8 L (32.0-36.0) g/dL RDW Std Deviation 49.9 H (36.4-46.3) fL RDW Coeff of Katelyn 14.1 (11.5-14.5) % Plt Count 242 (130-400) K/uL MPV 10.1 (9.4-12.4) fL Immature Gran % (Auto) 0.4 % Neut % (Auto) 75.5 % Lymph % (Auto) 14.4 % [place] % (Auto) 8.2 % Eos % (Auto) 0.7 % Baso % (Auto) 0.8 % Neut # (Auto) 7.14 H (1.40-6.50) K/uL Lymph # (Auto) 1.36 (1.2-3.4) K/uL [place] # (Auto) 0.78 H (0.11-0.59) K/uL Eos # (Auto) 0.07 (0-0.50) K/uL Baso # (Auto) 0.08 (0-0.2) K/uL Immature Gran # (Auto) 0.04 (0.01-0.20) K/uL Sodium 138 (136-145) mmol/L Potassium 5.1 (3.5-5.1) mmol/L Chloride 107 (98-107) mmol/L Carbon Dioxide 25 (21-32) mmol/L Anion Gap 6 (3-11) BUN 34 H (6-23) mg/dl Creatinine 2.57 H (0.6-1.4) mg/dl Est Cr Clr Drug Dosing 21.8 ml/min Est GFR ( Amer) 26.4 ml/min Est GFR (Non-Af Amer) 22.8 ml/min BUN/Creatinine Ratio 13.2 (10-20) Glucose 219 H (70-99(Fasting)) mg/dl Calcium 9.4 (8.6-10.3) mg/dl Magnesium 1.8 (1.7-2.4) mg/dl Total Bilirubin 0.4 (0.2-1.0) mg/dl AST 20 (13-39) U/L ALT 27 (7-52) U/L Alkaline Phosphatase 60 (34-104) U/L Troponin I High Sens 21.2 H (0-20) pg/ml Total Protein 6.9 (6.0-8.3) gm/dl Albumin 4.3 (3.4-5.0) gm/dl Globulin 2.6 (2.5-4.0) gm/dl Albumin/Globulin Ratio 1.7 (0.9-2) TSH 2.353 (0.300-4.500) uIu/ml SARS-CoV-2, RNA, NAAT (NEGATIVE) 01/11/23 Range/Units 13:38 WBC (4.8-10.8) K/ul RBC (4.70-6.10) M/uL Hgb (14.0-18.0) g/dl Hct (42.0-52.0) % MCV (80.0-100.0) fL MCH (25.0-34.0) pg MCHC (32.0-36.0) g/dL RDW Std Deviation (36.4-46.3) fL RDW Coeff of Katelyn (11.5-14.5) % Plt Count (130-400) K/uL MPV (9.4-12.4) fL Immature Gran % (Auto) % Neut % (Auto) % Lymph % (Auto) % [place] % (Auto) % Eos % (Auto) % Baso % (Auto) % Neut # (Auto) (1.40-6.50) K/uL Lymph # (Auto) (1.2-3.4) K/uL [place] # (Auto) (0.11-0.59) K/uL Eos # (Auto) (0-0.50) K/uL Baso # (Auto) (0-0.2) K/uL Immature Gran # (Auto) (0.01-0.20) K/uL Sodium (136-145) mmol/L Potassium (3.5-5.1) mmol/L Chloride (98-107) mmol/L Carbon Dioxide (21-32) mmol/L Anion Gap (3-11) BUN (6-23) mg/dl Creatinine (0.6-1.4) mg/dl Est Cr Clr Drug Dosing ml/min Est GFR ( Amer) ml/min Est GFR (Non-Af Amer) ml/min BUN/Creatinine Ratio (10-20) Glucose (70-99(Fasting)) mg/dl Calcium (8.6-10.3) mg/dl Magnesium (1.7-2.4) mg/dl Total Bilirubin (0.2-1.0) mg/dl AST (13-39) U/L ALT (7-52) U/L Alkaline Phosphatase (34-104) U/L Troponin I High Sens (0-20) pg/ml Total Protein (6.0-8.3) gm/dl Albumin (3.4-5.0) gm/dl Globulin (2.5-4.0) gm/dl Albumin/Globulin Ratio (0.9-2) TSH (0.300-4.500) uIu/ml SARS-CoV-2, RNA, NAAT NEGATIVE (NEGATIVE) Administered Medications Amlodipine Besylate (Amlodipine Besylate 5 Mg Tab) 5 mg PO DAILY [facility] Stop: 02/11/23 08:59 Last Admin: 01/13/23 08:05 Dose: 5 mg Documented By: Admin: 01/12/23 07:59 Dose: 5 mg Documented By: ZOË Apixaban (Apixaban 5 Mg Tablet) 5 mg PO BID [facility] Stop: 02/10/23 20:59 Last Admin: 01/13/23 08:05 Dose: 5 mg Documented By: Admin: 01/12/23 20:53 Dose: 5 mg Documented By: Admin: 01/12/23 07:59 Dose: 5 mg Documented By: Admin: 01/11/23 20:44 Dose: 5 mg Documented By: MG Aspirin (Aspirin 81 Mg Ectab) 81 mg PO DAILY [facility] Stop: 02/11/23 08:59 Last Admin: 01/13/23 08:05 Dose: 81 mg Documented By: Admin: 01/12/23 08:00 Dose: 81 mg Documented By: ZOË Atorvastatin Calcium (Atorvastatin 40 Mg Tab) 80 mg PO HS [facility] Stop: 02/10/23 20:59 Last Admin: 01/12/23 20:53 Dose: 80 mg Documented By: Admin: 01/11/23 20:43 Dose: 80 mg Documented By: MG Ezetimibe (Ezetimibe 10 Mg Tablet) 10 mg PO DAILY [facility] Stop: 02/11/23 08:59 Last Admin: 01/13/23 08:06 Dose: 10 mg Documented By: Admin: 01/12/23 07:59 Dose: 10 mg Documented By: ZOË Insulin Aspart (Insulin Aspart Per Unit Charge) 0 units SC ACHS [facility] Stop: 02/10/23 20:59 Last Admin: 01/13/23 12:01 Dose: 2 units Documented By: GRACIELA Co-signed By: ZAKIYA Admin: 01/13/23 08:10 Dose: 3 units Documented By: GRACIELA Co-signed By: PARKER Admin: 01/12/23 20:53 Dose: Not Given Documented By: Admin: 01/12/23 17:39 Dose: 4 units Documented By: ZOË Co-signed By: ANDRÉS Admin: 01/12/23 12:09 Dose: 1 units Documented By: ZOË Co-signed By: CARLITO Admin: 01/12/23 07:52 Dose: Not Given Documented By: Admin: 01/11/23 20:44 Dose: 1 units Documented By: Co-signed By: LOIK Discontinued Medications Sodium Chloride (Nss) 500 mls @ 999 mls/hr IV .Q31M ONE Stop: 01/11/23 16:32 Last Infusion: 01/11/23 17:13 Dose: 0 mls/hr Documented By: Admin: 01/11/23 16:13 Dose: 999 mls/hr Documented By: CANDIDO Sodium Chloride (Nss) 500 mls @ 125 mls/hr IV .Q4H [facility] Stop: 02/10/23 16:14 Last Infusion: 01/11/23 18:03 Dose: 0 mls/hr Documented By: Admin: 01/11/23 17:37 Dose: 125 mls/hr Documented By: CANDIDO Sodium Chloride (Nss 1000ml) 1,000 mls @ 80 mls/hr IV .[id number] [facility] Stop: 01/12/23 06:17 Last Infusion: 01/12/23 06:25 Dose: 0 mls/hr Documented By: Admin: 01/11/23 17:50 Dose: 80 mls/hr Documented By: PARKER Magnesium Sulfate/Dextrose (Magnesium Sulfate / D5w) 1 gm in 100 mls @ 50 mls/hr IV Q2H [facility] Stop: 01/12/23 11:29 Last Infusion: 01/12/23 11:54 Dose: 0 mls/hr Documented By: Admin: 01/12/23 09:47 Dose: 50 mls/hr Documented By: Infusion: 01/12/23 09:47 Dose: 50 mls/hr Documented By: Admin: 01/12/23 07:59 Dose: 50 mls/hr Documented By: ZOË Imaging Data Radiologist's Impression: Chest X-Ray 01/11/23 14:30 XR chest 1V portable CLINICAL HISTORY: bradycardia COMPARISON STUDY: Chest radiograph December 27, 2022. FINDINGS: There are median sternotomy wires. Cardiomegaly is noted. No evidence for pulmonary edema. There is no consolidation to suggest pneumonia. There is no pneumothorax or pleural effusion. IMPRESSION: No acute cardiopulmonary findings. ACT 112: Negative or not required by law. Electronically signed by: Rodger Judd M.D. 01/11/2023 3:13 PM Discharge Plan Visit Data Chief Complaint: Bradycardia Stated Complaint: A FIB COMPLICATION ED Provider: Belkys Granado Discharge Problem: Junctional bradycardia, Medication side effects, Weakness Patient Disposition: Admitted As Inpatient Discharge Instructions Interventions: ED Discharge Assessment Last Done: 01/11/23 17:20
[2023-01-11 15:11] LABS: Troponin I High Sensitivity 21.2 pg/ml (0-20)
--- NOTE | 2023-01-11 15:14 | XRay Report ---
XR chest 1V portable CLINICAL HISTORY: bradycardia COMPARISON STUDY: Chest radiograph December 27, 2022. FINDINGS: There are median sternotomy wires. Cardiomegaly is noted. No evidence for pulmonary edema. There is no consolidation to suggest pneumonia. There is no pneumothorax or pleural effusion. IMPRESSION: No acute cardiopulmonary findings. ACT 112: Negative or not required by law. Electronically signed by: Rodger Judd M.D. 01/11/2023 3:13 PM
[2023-01-11] MEDS ORDERED: SODIUM CHLORIDE 0.9% 500 ML IV ONE (16:02)
[2023-01-11] MEDS ORDERED: SODIUM CHLORIDE 0.9% 500 ML IV SCH (16:15)
--- NOTE | 2023-01-11 16:24 | History & Physical Report ---
Date of Service January 11, 2023 Assessment & Plan (1) Bradycardia: Plan: Patient is 77-year-old male with PMH HTN, HLD, DM II, paroxysmal atrial fibrillation, history of cardioversion, CAD s/p CABG presented to ER with complaint of fatigue with walking up flight of stairs today and noted bradycardia. Recent hospitalization for atrial fibrillation s/p successful cardioversion with noted bradycardia and metoprolol, diltiazem discontinued and patient was started on amiodarone In ER EKG rate 39, junctional bradycardia. Patient asymptomatic at rest and patient otherwise hemodynamically stable Recently was restarted outpatient on metoprolol succinate 50 mg daily, diltiazem at 180 mg daily. amiodarone was decreased from 200mg BID to once daily Suspect worsened bradycardia secondary to restarting of medications Monitor on telemetry Initial high-sensitivity troponin 21. Will trend. Denies chest pain. Pacer pads at bedside N.p.o. midnight Hold metoprolol, diltiazem, amiodarone Cardiology consult. Discussed with on-call Dr. Pizano EKG in a.m. If no improvement of bradycardia with medication adjustment, may need to consider pacemaker (2) MT (acute kidney injury): (3) CKD (chronic kidney disease), stage III: Plan: BUN: 34,Cr: 2.57. (Cr: 1.9 on 12/30/2022, 2.0 on 12/29/2022. Prior baseline was 1.5 in 2021-November 2022) In ER given 500 mL bolus NSS Gentle IVF Hold lisinopril, lisinopril was recently started Monitor renal functions, avoid nephrotoxic agents when possible If no improvement consider nephrology consult (4) Paroxysmal A-fib: Plan: History paroxysmal atrial fibrillation. S/P cardioversion 11/08/2022 and 12/27/2022 Anticoagulated on Eliquis Continue Eliquis Hold metoprolol, diltiazem, amiodarone Monitor on telemetry (5) CAD (coronary artery disease): Plan: S/p CABG History NSTEMI 11/07/2022 Continue aspirin, atorvastatin, ezetimibe Beta-roger on hold as above secondary to bradycardia (6) HTN (hypertension): Plan: Continue amlodipine with holding parameters Hold lisinopril with current MT (7) DM II (diabetes mellitus, type II), controlled: Plan: A1c: 7.6 on 12/28/2022 Hold metformin, Farxiga NovoLog sliding scale per protocol DVT Prophylaxis On Eliquis Full Code as per discussion with pt Pt was seen and care coordinated with Dr Lyman. See addendum I spent a total of 83 minutes reviewing notes, outpatient records, labs, medication, coordinating, documenting and providing care for this patient excluding time spent in the performance of separately billed services. History of Present Illness Chief Complaint: fatigue Primary Care Provider: NO PCP Patient is 77-year-old male with PMH HTN, HLD, DM II, paroxysmal atrial fibrillation, history of cardioversion, CAD s/p CABG presented to ER with complaint of fatigue with walking up flight of stairs today and noted bradycardia. History NSTEMI transferred from [facility] to [facility] [place] [place] 11/07/2022-11/10/2022. During hospitalization had atrial flutter Cardiac cath on 11/08 which showed critical chitina vessel disease with total occlusion of mid LAD, mid L Cx and RCA. ELISE to LAD was patent. There was distal lesion in the chitina LAD after the touchdown of the ELISE but felt to be too distal for meaningful pursuit. The SVG was occluded. His RCA and L Cx territories were supplied by collaterals from his ELISE to LAD. He had cardioversion after the cath and return to sinus rhythm. 11/09/2022 echo EF 35-39%, large sized inferior, posterior and lateral wall motion abnormalities with hypokinesis to akinesis of the segments, mildly reduced right ventricular systolic function, mild aortic root valve regurgitation, mild mitral regurgitation Follows with [facility]. Had follow-up on 11/20/2022 and was noted to have sinus bradycardia with marked ME prolongation. He was instructed to discontinue diltiazem and continue Coreg. History of hospitalization 12/27/2022-12/30/2022 for atrial fibrillation, exertional angina, MT on CKD III. Had successful cardioversion on 12/27/2022 back in sinus rhythm. His prior home diltiazem and carvedilol were discontinued and patient was started on amiodarone and metoprolol. Patient developed bradycardia with first-degree AV block and metoprolol was discontinued. 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 Patient presented to ER today with complaint of fatigue. He reports today he was at an outdoor sale. He states he was having some shortness of breath with exertion. He reports walking up a flight of stairs and was feeling very fatigued so he checked his heart rate which was around 40 bpm. Patient states once daily he has been checking his heart rates and they have been 50-55 and he has been asymptomatic. Reports he was feeling well prior to today. Patient's states cardiology office restarted him on metoprolol succinate 50 mg daily, restarted diltiazem at 180 mg daily, decreased amiodarone from 200mg BID to once daily, started amlodipine 5 mg daily and lisinopril 2.5mg daily. Denies fever/chills, diaphoresis, N/V/D/C, JENKINS, dizziness, syncope, vision changes, neck pain, CP, orthopnea, palpitations, cough, sore throat, rhinorrhea, abdominal pain, paresthesias, extremity weakness, extremity edema, rashes, dysuria, hematuria. Outpatient pharmacy prescription refills reviewed: filled 12/27/2022 metoprolol succinate 50 mg 1 tablet at bedtime Amiodarone 200 mg twice daily filled on 12/30/2022 Diltiazem 180 mg 1 capsule daily filled on 01/06/2023 Amlodipine 5 mg daily filled on 01/07/2023 Lisinopril 2.5 mg filled on 01/02/2023 Today in ER found to be bradycardic rate 30s to low 40s. At rest patient is asymptomatic. Allergies Allergy/AdvReac Type Severity Reaction Status Date / Time No Known Allergies Allergy Unverified 12/27/22 12:55 Home Medications Medication Instructions Recorded Confirmed Type apixaban 5 mg tablet (Eliquis) 5 mg PO BID 12/27/22 01/11/23 History aspirin 81 mg tablet,delayed 81 mg PO DAILY 12/27/22 01/11/23 History release (Adult Low Dose Aspirin) atorvastatin 80 mg tablet 80 mg PO HS 12/27/22 01/11/23 History dapagliflozin 10 mg tablet 10 mg PO DAILY 12/27/22 01/11/23 History (Farxiga) ezetimibe 10 mg tablet 10 mg PO DAILY 12/27/22 01/11/23 History nitroglycerin 0.4 mg sublingual See Rx Instructions .Route .COMPLEX 12/27/22 01/11/23 History tablet amiodarone 200 mg tablet 200 mg PO DAILY 01/11/23 01/11/23 History amlodipine 5 mg tablet 5 mg PO DAILY 01/11/23 01/11/23 History diltiazem HCl 180 mg 180 mg PO DAILY 01/11/23 01/11/23 History capsule,extended release 24 hr lisinopril 2.5 mg tablet 2.5 mg PO DAILY 01/11/23 01/11/23 History metformin 1,000 mg tablet 1,000 mg PO QAM 01/11/23 01/11/23 History metformin 1,000 mg tablet 500 mg PO PM 01/11/23 01/11/23 History metoprolol succinate 50 mg 50 mg PO PM 01/11/23 01/11/23 History tablet,extended release 24 hr Past Med/Surg History Medical History (Updated 01/11/23 @ 17:32 by Susy Andres PA-C) Atrial flutter CAD (coronary artery disease) CKD (chronic kidney disease), stage III DM II (diabetes mellitus, type II), controlled HLD (hyperlipidemia) HTN (hypertension) Hx of cataract Paroxysmal A-fib Surgical History Hx of colonoscopy Hx of esophagogastroduodenoscopy S/P cardiac cath Family History Father Cancer Brother Lung disease Social History Smoking Status: Never smoker Hx Alcohol Use: No Hx Substance Use: No Preferred Language: Burkinan Communication Ability: Effective Percolator Operator Required: No Beliefs That Will Affect Care: None Current Living Situation: Family Feels Safe at Home: Yes Safety Concerns: Feels Safe At This Time Assistive Devices: None Review of Systems Review of Systems: All systems reviewed & are unremarkable except as noted in HPI & below Physical Exam Physical Exam: General: no distress, WDWN Head: normocephalic, atraumatic Eyes:conjunctiva non-injected, anicteric ENT: normal inspection external ears, nose, mucous membranes moist Neck: supple, trachea midline Lungs: clear, no respiratory distress, no wheezing/rhonchi/rales CV: + Bradycardia, rate 38, regular rhythm, no murmur, no pretibial edema Abd: normal BS, soft, non-tender Ext: no cyanosis, no calf tenderness Neuro: A&O x 3, no focal deficits noted, normal affect Skin: warm, dry Results & Data Results & Data Vital Signs (Past 12 Hours) Vital Signs Temp Pulse Pulse Resp BP BP Pulse Ox 01/11/23 16:00 37 L 19 96 01/11/23 16:00 139/60 01/11/23 15:30 35 L 21 94 01/11/23 15:30 124/76 01/11/23 15:03 38 L 18 125/67 95 01/11/23 14:00 40 L 25 H 123/63 95 01/11/23 13:17 39 L 01/11/23 13:27 95 01/11/23 13:09 42 L 27 H 138/58 L 95 01/11/23 13:00 36.7 C 40 L 18 136/61 99 O2 Del Method 01/11/23 16:00 Room Air 01/11/23 16:00 01/11/23 15:30 01/11/23 15:30 01/11/23 15:03 Room Air 01/11/23 14:00 Room Air 01/11/23 13:17 01/11/23 13:27 Room Air 01/11/23 13:09 01/11/23 13:00 Room Air Laboratory Results Short CBC 01/11/23 Range/Units 13:22 WBC 9.47 (4.8-10.8) K/ul Hgb 13.4 L (14.0-18.0) g/dl Hct 42.1 (42.0-52.0) % Plt Count 242 (130-400) K/uL BMP 01/11/23 13:22 Sodium 138 Potassium 5.1 Chloride 107 Carbon Dioxide 25 BUN 34 H Creatinine 2.57 H Glucose 219 H Calcium 9.4 Liver Function 01/11/23 Range/Units 13:22 Total Bilirubin 0.4 (0.2-1.0) mg/dl AST 20 (13-39) U/L ALT 27 (7-52) U/L Alkaline Phosphatase 60 (34-104) U/L Albumin 4.3 (3.4-5.0) gm/dl Diagnostic Findings Chest X-Ray 01/11/23 14:30 XR chest 1V portable CLINICAL HISTORY: bradycardia COMPARISON STUDY: Chest radiograph December 27, 2022. FINDINGS: There are median sternotomy wires. Cardiomegaly is noted. No evidence for pulmonary edema. There is no consolidation to suggest pneumonia. There is no pneumothorax or pleural effusion. IMPRESSION: No acute cardiopulmonary findings. ACT 112: Negative or not required by law. Electronically signed by: Rodger Judd M.D. 01/11/2023 3:13 PM Supervising Physician Co-Signing Physician Notes Patient was seen and examined independently at bedside. Chart reviewed including vitals, labs, imaging, EKG and recent admission notes. Case discussed with Susy VELA and agree with the documentation above. In summary, this is a 77 year old male with h/o PAF s/p recent cardioversion and bradycardia and was discharged home on amiodarone while discontinuing his metoprolol and cardizem came back with symptomatic junctional bradycardia. Apparently, patient had follow up with his [facility] cardiology on Friday and he was resumed on metoprolol and cardizem. During my encounter, patient was lying comfortably in bed, asymptomatic. Patient had taken all his pills this morning. He currently denies any CP, palpitations, lightheadedness, dizziness, dyspnea. Vitals stable except for bradycardia. AAO, chest clear, heart sounds regular but bradycardic, abd benign, non focal neuro exam, no lower extremity edema. Agree with observation in PCU on tele. Discontinue all AV kip blockers including metoprolol and cardizem. Hold amiodarone. Will let the medications get off his system. Prn atropine or pacer at bedside if needed for bradycardia but anticipate he would not need it. Patient would like to switch cardiology group to [facility] cardio. Consult card iology. Agree with gentle ivf for MT on CKD. Rest as per the note above.
[2023-01-11] MEDS ORDERED: GLUCOSE 40% GEL 15 GM TUBE PO PRN (17:48)
[2023-01-11] MEDS ORDERED: CARBOHYDRATES FOR HYPOGLYCEMIA PO PRN (17:48)
[2023-01-11] MEDS ORDERED: POLYETHYLENE (MIRALAX) 17 GM PACK PO PRN (17:48)
[2023-01-11] MEDS ORDERED: ACETAMINOPHEN 325 MG TAB PO PRN (17:48)
[2023-01-11] MEDS ORDERED: DEXTROSE 50% 50 ML SYRINGE IV PRN (17:48)
[2023-01-11] MEDS ORDERED: GLUCOSE 10 TAB/TUBE PO PRN (17:48)
[2023-01-11] MEDS ORDERED: GLUCAGON FOR INJ 1 MG VIAL SQ PRN (17:48)
[2023-01-11] MEDS ORDERED: SODIUM CHLORIDE 0.9% 1000ML 1,000 ML IV SCH (17:48)
[2023-01-11] MEDS: ATORVASTATIN 40 MG TAB PO SCH (20:43)
[2023-01-11] MEDS: INSULIN ASPART PER UNIT CHARGE SC SCH (20:44)
[2023-01-11] MEDS: APIXABAN 5 MG TABLET PO SCH (20:44)
[2023-01-12 06:16] LABS: Hematocrit (blood only) 36.9 % (42.0-52.0); Mean Corpuscular Hemoglobin 30.7 pg (25.0-34.0); Mean Corpuscular Hgb Conc 32.5 g/dL (32.0-36.0); Mean Corpuscular Volume 94.4 fL (80.0-100.0); Mean Platelet Volume 10.2 fL (9.4-12.4); Platelet Count 183 K/uL (130-400); RDW Coefficient of Variation 14.3 % (11.5-14.5); RDW Standard Deviation 49.4 fL (36.4-46.3); Red Blood Count 3.91 M/uL (4.70-6.10); White Blood Count 9.23 K/ul (4.8-10.8)
[2023-01-12 06:33] LABS: Albumin Globulin Ratio 1.6 (0.9-2); Albumin Level 3.5 gm/dl (3.4-5.0); BUN Creatinine Ratio 21.5 (10-20); Bilirubin,Total 0.4 mg/dl (0.2-1.0); Calcium 8.3 mg/dl (8.6-10.3); Creatinine Clr Calc Pharmacy 32.6 ml/min; Est GFR (African American) 42.9 ml/min; Globulin 2.2 gm/dl (2.5-4.0); Magnesium 1.6 mg/dl (1.7-2.4); Potassium 4.4 mmol/L (3.5-5.1); Total Protein 5.7 gm/dl (6.0-8.3)
[2023-01-12 06:38] LABS: Troponin I High Sensitivity 27.5 pg/ml (0-20)
--- NOTE | 2023-01-12 07:34 | Electrocardiogram Report ---
Test Reason : Blood Pressure : / mmHG Vent. Rate : 039 BPM Atrial Rate : 000 BPM P-R Int : 000 ms QRS Dur : 098 ms QT Int : 484 ms P-R-T Axes : 000 017 177 degrees QTc Int : 389 ms Junctional bradycardia Abnormal ECG When compared with ECG of 30-DEC-2022 11:15, Junctional rhythm has replaced Sinus rhythm Confirmed by Dutch Dela Cruz ([id number]) on 01/12/2023 7:33:35 AM Referred By: REFERRED SELF Confirmed By:Dutch Dela Cruz
[2023-01-12] MEDS: INSULIN ASPART PER UNIT CHARGE SC SCH ×4 (07:52→20:53)
--- NOTE | 2023-01-12 07:52 | Electrocardiogram Report ---
Test Reason : Blood Pressure : / mmHG Vent. Rate : 050 BPM Atrial Rate : 050 BPM P-R Int : 318 ms QRS Dur : 110 ms QT Int : 466 ms P-R-T Axes : 207 064 126 degrees QTc Int : 424 ms Sinus bradycardia with 1st degree AV block Nonspecific ST and T wave abnormality Abnormal ECG When compared with ECG of 11-JAN-2023 14:39, (unconfirmed) Sinus rhythm has replaced a junctional rhythm T wave inversion no longer evident in Lateral leads Confirmed by Saul Harris ([id number]) on 01/12/2023 7:52:11 AM Referred By: REFERRED SELF Confirmed By:Jarocho Harris
--- NOTE | 2023-01-12 07:53 | Electrocardiogram Report ---
Test Reason : Blood Pressure : / mmHG Vent. Rate : 041 BPM Atrial Rate : 000 BPM P-R Int : 000 ms QRS Dur : 096 ms QT Int : 486 ms P-R-T Axes : 000 023 164 degrees QTc Int : 400 ms Competing junctional and sinus rhythm with 1st degree AV block Possible Anterior infarct , age undetermined Abnormal ECG Confirmed by Saul Harris ([id number]) on 01/12/2023 7:53:27 AM Referred By: REFERRED SELF Confirmed By:Jarocho Harris
[2023-01-12] MEDS: amLODIPine BESYLATE 5 MG TAB PO SCH (07:59)
[2023-01-12] MEDS: MAGNESIUM SULFATE / D5W 1 GM/100 ML BAG IV SCH ×2 (07:59→09:47)
[2023-01-12] MEDS: APIXABAN 5 MG TABLET PO SCH ×2 (07:59→20:53)
[2023-01-12] MEDS: EZETIMIBE 10 MG TABLET PO SCH (07:59)
[2023-01-12] MEDS: ASPIRIN 81 MG ECTAB PO SCH (08:00)
--- NOTE | 2023-01-12 12:51 | Cardiology Consultation ---
Date of Consultation January 12, 2023 Assessment & Plan (1) Junctional bradycardia: (2) CKD (chronic kidney disease), stage III: (3) CAD (coronary artery disease): (4) Paroxysmal A-fib: Plan Patient is a 77-year-old male with underlying history of ischemic heart disease, ischemic cardiomyopathy and paroxysmal atrial fibrillation. Recent records reviewed in detail discussed with patient. Patient with acute coronary syndrome in the setting of atrial fibrillation with rapid response in November. Recurrence and subsequent synchronized electrical cardioversion on 12/27/2022 with initiation of antiarrhythmic therapy with amiodarone. Patient presents with junctional bradycardia after restart of diltiazem and metoprolol superimposed on amiodarone therapy. Rhythm has returned back to sinus bradycardia after holding medication Transient renal insufficiency noted now improved this morning Recommendations: Continue telemetry additional 24 hours Continue to hold amiodarone with likely resumption at 100 mg in a.m. No further metoprolol or diltiazem Consider increasing lisinopril on discharge as renal function improved for further hypertension control May need to reduce atorvastatin dosing given amiodarone therapy Patient currently clinically stable and improving History of Present Illness Reason for Consultation: Junctional bradycardia, symptomatic Requesting Physician: Dr. Carpio Attending Physician: Jeffrey Carpio MD History of Present Illness Patient is a 77-year-old male with ongoing cardiac issues Coronary heart disease , ischemic cardiomyopathy History of CABG (likely x 2) at [facility] in 2008 Paroxysmal atrial fibrillation/flutter, with persistent atrial fibrillation / flutter from around 2020 until recent cardioversion on 11/08/22, 12/27/2022. Initiated on amiodarone at last intervention Stage 3b chronic kidney disease, baseline creatinine in the range of 1.5-1.7 Recent clinical history notable for recurrence of atrial fibrillation and underwent synchronized electrical cardioversion with successful return to sinus rhythm. Patient discharged on amiodarone. At recent clinic visit was restarted on diltiazem and metoprolol in addition to amiodarone. Day of admission patient felt weak and dizzy while walking at [employer] Presented to the emergency room patient in junctional bradycardia Medications have been held with resumption of sinus mechanism with first-degree AV block and moderate bradycardia No further symptoms. No chest pains, tachypalpitations dizziness or lightheadedness this morning. Patient chronically anticoagulated Allergies Allergy/AdvReac Type Severity Reaction Status Date / Time No Known Allergies Allergy Unverified 12/27/22 12:55 Home Medications Medication Instructions Recorded Confirmed Type apixaban 5 mg tablet (Eliquis) 5 mg PO BID 12/27/22 01/11/23 History aspirin 81 mg tablet,delayed 81 mg PO DAILY 12/27/22 01/11/23 History release (Adult Low Dose Aspirin) atorvastatin 80 mg tablet 80 mg PO HS 12/27/22 01/11/23 History dapagliflozin 10 mg tablet 10 mg PO DAILY 12/27/22 01/11/23 History (Farxiga) ezetimibe 10 mg tablet 10 mg PO DAILY 12/27/22 01/11/23 History nitroglycerin 0.4 mg sublingual See Rx Instructions .Route .COMPLEX 12/27/22 01/11/23 History tablet amiodarone 200 mg tablet 200 mg PO DAILY 01/11/23 01/11/23 History amlodipine 5 mg tablet 5 mg PO DAILY 01/11/23 01/11/23 History diltiazem HCl 180 mg 180 mg PO DAILY 01/11/23 01/11/23 History capsule,extended release 24 hr lisinopril 2.5 mg tablet 2.5 mg PO DAILY 01/11/23 01/11/23 History metformin 1,000 mg tablet 1,000 mg PO QAM 01/11/23 01/11/23 History metformin 1,000 mg tablet 500 mg PO PM 01/11/23 01/11/23 History metoprolol succinate 50 mg 50 mg PO PM 01/11/23 01/11/23 History tablet,extended release 24 hr Patient History Medical History Atrial flutter CAD (coronary artery disease) CKD (chronic kidney disease), stage III DM II (diabetes mellitus, type II), controlled HLD (hyperlipidemia) HTN (hypertension) Hx of cataract Paroxysmal A-fib Surgical History Hx of colonoscopy Hx of esophagogastroduodenoscopy S/P cardiac cath Family History Father Cancer Brother Lung disease Social History Smoking Status: Never smoker Hx Alcohol Use: No Hx Substance Use: No Preferred Language: Cymro Communication Ability: Effective Property Preservation Specialist Required: No Beliefs That Will Affect Care: None Current Living Situation: Family Feels Safe at Home: Yes Safety Concerns: Feels Safe At This Time Assistive Devices: None Review of Systems Review of Systems: All systems reviewed & are unremarkable except as noted in HPI & below Physical Exam Constitutional: WD/WN, vitals as above no acute distress Eyes: PERRL, conjunctivae normal, anicteric sclerae ENMT: external ear and nose normal, oropharynx normal Neck: trachea midline, no thyromegaly Respiratory: normal respiratory effort, lungs clear to auscultation Cardiovascular: Rate/Rhythm: regular rate, regular rhythm and + bradycardic Palpation: S3 nonpalpable Vessels: no JVD Extremities: no edema Gastrointestinal (Abdomen): normal bowel sounds, soft, nontender, no hepatosplenomegaly Musculoskeletal: no cyanosis or clubbing, extremities motor strength 5/5 Results & Data Vital Signs (Past 12 Hours) Vital Signs Temp Pulse Pulse Pulse Pulse Resp BP 01/12/23 12:21 36.8 C 52 L 20 01/12/23 07:28 36.3 C L 51 L 16 01/12/23 07:15 46 L 01/12/23 03:25 36.5 C 51 L 19 155/61 H BP Pulse Ox O2 Del Method 01/12/23 12:21 144/69 H 95 Room Air 01/12/23 07:28 155/67 H 96 Room Air 01/12/23 07:15 01/12/23 03:25 96 Room Air Laboratory Results Laboratory Results - last 24 hr 01/11/23 01/11/23 01/11/23 13:22 13:22 13:22 WBC 9.47 RBC 4.38 L Hgb 13.4 L Hct 42.1 MCV 96.1 MCH 30.6 MCHC 31.8 L RDW Std Deviation 49.9 H RDW Coeff of Katelyn 14.1 Plt Count 242 MPV 10.1 Immature Gran % (Auto) 0.4 Neut % (Auto) 75.5 Lymph % (Auto) 14.4 [place] % (Auto) 8.2 Eos % (Auto) 0.7 Baso % (Auto) 0.8 Neut # (Auto) 7.14 H Lymph # (Auto) 1.36 [place] # (Auto) 0.78 H Eos # (Auto) 0.07 Baso # (Auto) 0.08 Immature Gran # (Auto) 0.04 Sodium 138 Potassium 5.1 Chloride 107 Carbon Dioxide 25 Anion Gap 6 BUN 34 H Creatinine 2.57 H Est Cr Clr Drug Dosing 21.8 Est GFR ( Amer) 26.4 Est GFR (Non-Af Amer) 22.8 BUN/Creatinine Ratio 13.2 Glucose 219 H POC Glucose Calcium 9.4 Magnesium 1.8 Total Bilirubin 0.4 AST 20 ALT 27 Alkaline Phosphatase 60 Troponin I High Sens 21.2 H Total Protein 6.9 Albumin 4.3 Globulin 2.6 Albumin/Globulin Ratio 1.7 TSH 2.353 SARS-CoV-2, RNA, NAAT 01/11/23 01/11/23 01/11/23 13:38 17:00 18:11 WBC RBC Hgb Hct MCV MCH MCHC RDW Std Deviation RDW Coeff of Katelyn Plt Count MPV Immature Gran % (Auto) Neut % (Auto) Lymph % (Auto) [place] % (Auto) Eos % (Auto) Baso % (Auto) Neut # (Auto) Lymph # (Auto) [place] # (Auto) Eos # (Auto) Baso # (Auto) Immature Gran # (Auto) Sodium Potassium Chloride Carbon Dioxide Anion Gap BUN Creatinine Est Cr Clr Drug Dosing Est GFR ( Amer) Est GFR (Non-Af Amer) BUN/Creatinine Ratio Glucose POC Glucose 129 H Calcium Magnesium Total Bilirubin AST ALT Alkaline Phosphatase Troponin I High Sens 22.0 H Total Protein Albumin Globulin Albumin/Globulin Ratio TSH SARS-CoV-2, RNA, NAAT NEGATIVE 01/11/23 01/11/23 01/12/23 20:17 22:48 05:16 WBC 9.23 RBC 3.91 L Hgb 12.0 L Hct 36.9 L MCV 94.4 MCH 30.7 MCHC 32.5 RDW Std Deviation 49.4 H RDW Coeff of Katelyn 14.3 Plt Count 183 MPV 10.2 Immature Gran % (Auto) Neut % (Auto) Lymph % (Auto) [place] % (Auto) Eos % (Auto) Baso % (Auto) Neut # (Auto) Lymph # (Auto) [place] # (Auto) Eos # (Auto) Baso # (Auto) Immature Gran # (Auto) Sodium Potassium Chloride Carbon Dioxide Anion Gap BUN Creatinine Est Cr Clr Drug Dosing Est GFR ( Amer) Est GFR (Non-Af Amer) BUN/Creatinine Ratio Glucose POC Glucose 194 H Calcium Magnesium Total Bilirubin AST ALT Alkaline Phosphatase Troponin I High Sens 31.7 H Total Protein Albumin Globulin Albumin/Globulin Ratio TSH SARS-CoV-2, RNA, NAAT 01/12/23 01/12/23 01/12/23 05:16 07:32 11:39 WBC RBC Hgb Hct MCV MCH MCHC RDW Std Deviation RDW Coeff of Katelyn Plt Count MPV Immature Gran % (Auto) Neut % (Auto) Lymph % (Auto) [place] % (Auto) Eos % (Auto) Baso % (Auto) Neut # (Auto) Lymph # (Auto) [place] # (Auto) Eos # (Auto) Baso # (Auto) Immature Gran # (Auto) Sodium 140 Potassium 4.4 Chloride 114 H Carbon Dioxide 20 L Anion Gap 6 BUN 37 H Creatinine 1.72 H D Est Cr Clr Drug Dosing 32.6 Est GFR ( Amer) 42.9 Est GFR (Non-Af Amer) 37.0 BUN/Creatinine Ratio 21.5 H Glucose 130 H POC Glucose 115 H 118 H Calcium 8.3 L Magnesium 1.6 L Total Bilirubin 0.4 AST 13 ALT 24 Alkaline Phosphatase 56 Troponin I High Sens 27.5 H Total Protein 5.7 L Albumin 3.5 Globulin 2.2 L Albumin/Globulin Ratio 1.6 TSH SARS-CoV-2, RNA, NAAT Diagnostic Findings Cardiac catheterization 11/08/2022 in the setting of acute chest pain/infarct * The coronary arteries have significant 3 vessel disease. * [place] veseels: The mid LAD has 100% stenosis, The mid LCx has 100% stenosis, The RCA is a small non-dominant vessel that has 100% stenosis * [place]: The ELISE to the LAD is widely patent; distal to the LAD touchdown there is a 70% stenosis in apical LAD; The SVG to likely OM is 100% occluded * Following diagnostic angiography patient was cardioverted (DCC) with 200 Joules that restored sinus rhythm with 1 shock. He remained hemodynamically stable throughout procedure. Sinus rhythm with HR in 50s at end of procedure
--- NOTE | 2023-01-12 13:11 | Hospitalist Progress Note ---
Date of Service January 12, 2023 Assessment & Plan (1) Bradycardia: Plan: Patient is 77-year-old male with PMH HTN, HLD, DM II, paroxysmal atrial fibrillation, history of cardioversion, CAD s/p CABG presented to ER with complaint of fatigue with walking up flight of stairs today and noted bradycardia. Recent hospitalization for atrial fibrillation s/p successful cardioversion with noted bradycardia and metoprolol, diltiazem discontinued and patient was started on amiodarone. Recently was restarted outpatient on metoprolol succinate 50 mg daily, diltiazem at 180 mg daily. amiodarone was decreased from 200mg BID to once daily Junctional bradycardia H/O paroxysmal atrial fibrillation Secondary to restarting diltiazem and metoprolol superimposed on amiodarone therapy --Normal TSH Metoprolol, diltiazem discontinued Amiodarone on hold--plan to resume tomorrow per cardiology Appreciate cardiology input Hypomagnesemia Replete electrolytes as needed (2) MT (acute kidney injury): (3) CKD (chronic kidney disease), stage III: Plan: MT on CKD III Cr Baseline ~1.5 to 2 Cr 1.7 today Received IV Fluids Restart lisinopril as able (4) Paroxysmal A-fib: Plan: H/O paroxysmal atrial fibrillation. S/P cardioversion 11/08/2022 and 12/27/2022 Anticoagulated on Eliquis Continue Eliquis Metoprolol, diltiazem DCed due to bradycardia Resume amiodarone as able (5) CAD (coronary artery disease): Plan: S/p CABG History NSTEMI 11/07/2022 Continue aspirin, atorvastatin, ezetimibe Beta-roger discontinued secondary to bradycardia (6) HTN (hypertension): Plan: Continue amlodipine Resume Lisinopril as able (7) DM II (diabetes mellitus, type II), controlled: Plan: A1c: 7.6 on 12/28/2022 Hold metformin, Farxiga NovoLog sliding scale per protocol DVT Px Eliquis Code Status Full Code Admission and Anticipated Discharge Date Admission Date: January 11, 2023 Subjective Patient is seen and examined at bedside States feeling a lot better this morning Offers no new complaints Denies any chest pain, dyspnea, dizziness, nausea, abdominal pain Family at bedside Discussed with cardiology today Review of Systems Review of Systems: All systems reviewed & are unremarkable except as noted in Subjective Physical Exam Physical Exam: Physical Exam: Vitals signs as noted above General Appearance:Moderately built and nourished, no apparent distress Head: normocephalic, Atraumatic Eyes: normal inspection, EOMI Neck: supple, Trachea midline Respiratory/Chest: Normal breath sounds, CTA, No accessory muscle use Cardiovascular: S1, S2, No murmur, +bradycardia Abdomen/GI:Soft, Non tender, Bowel sounds present Extremities/Musculoskeletal:normal inspection, no edema Neurologic/Psych:AAOX3, grossly no focal neurological deficits Skin: normal color, warm Results & Data Results & Data Vital Signs (Past 12 Hours) Vital Signs Temp Pulse Pulse Pulse Pulse Resp BP 01/12/23 12:21 36.8 C 52 L 20 01/12/23 07:28 36.3 C L 51 L 16 01/12/23 07:15 46 L 01/12/23 03:25 36.5 C 51 L 19 155/61 H BP Pulse Ox O2 Del Method 01/12/23 12:21 144/69 H 95 Room Air 01/12/23 07:28 155/67 H 96 Room Air 01/12/23 07:15 01/12/23 03:25 96 Room Air Laboratory Results Short CBC 01/11/23 01/12/23 Range/Units 13:22 05:16 WBC 9.47 9.23 (4.8-10.8) K/ul Hgb 13.4 L 12.0 L (14.0-18.0) g/dl Hct 42.1 36.9 L (42.0-52.0) % Plt Count 242 183 (130-400) K/uL BMP 01/11/23 01/12/23 13:22 05:16 Sodium 138 140 Potassium 5.1 4.4 Chloride 107 114 H Carbon Dioxide 25 20 L BUN 34 H 37 H Creatinine 2.57 H 1.72 H D Glucose 219 H 130 H Calcium 9.4 8.3 L Liver Function 01/11/23 01/12/23 Range/Units 13:22 05:16 Total Bilirubin 0.4 0.4 (0.2-1.0) mg/dl AST 20 13 (13-39) U/L ALT 27 24 (7-52) U/L Alkaline Phosphatase 60 56 (34-104) U/L Albumin 4.3 3.5 (3.4-5.0) gm/dl
[2023-01-12] MEDS: ATORVASTATIN 40 MG TAB PO SCH (20:53)
[2023-01-13 06:38] LABS: Hematocrit (blood only) 37.7 % (42.0-52.0); Hemoglobin 12.5 g/dl (14.0-18.0); Mean Corpuscular Hemoglobin 31.2 pg (25.0-34.0); Mean Corpuscular Hgb Conc 33.2 g/dL (32.0-36.0); Mean Platelet Volume 10.1 fL (9.4-12.4); Platelet Count 180 K/uL (130-400); RDW Coefficient of Variation 13.9 % (11.5-14.5); RDW Standard Deviation 47.8 fL (36.4-46.3); Red Blood Count 4.01 M/uL (4.70-6.10); White Blood Count 7.15 K/ul (4.8-10.8)
[2023-01-13 06:54] LABS: BUN Creatinine Ratio 18.1 (10-20); Calcium 8.5 mg/dl (8.6-10.3); Creatinine Clr Calc Pharmacy 33.7 ml/min; Est GFR (African American) 44.8 ml/min; Est GFR (Non-African American) 38.6 ml/min; Potassium 4.5 mmol/L (3.5-5.1)
[2023-01-13] MEDS: ASPIRIN 81 MG ECTAB PO SCH (08:05)
[2023-01-13] MEDS: APIXABAN 5 MG TABLET PO SCH ×2 (08:05→19:39)
[2023-01-13] MEDS: amLODIPine BESYLATE 5 MG TAB PO SCH (08:05)
[2023-01-13] MEDS: EZETIMIBE 10 MG TABLET PO SCH (08:06)
[2023-01-13] MEDS: INSULIN ASPART PER UNIT CHARGE SC SCH ×4 (08:10→21:25)
--- NOTE | 2023-01-13 14:40 | Cardiology Progress Note ---
Date of Service January 13, 2023 Assessment & Plan (1) Junctional bradycardia: (2) CKD (chronic kidney disease), stage III: (3) CAD (coronary artery disease): (4) Paroxysmal A-fib: Plan Patient is a 77-year-old male with underlying history of ischemic heart disease, ischemic cardiomyopathy and paroxysmal atrial fibrillation. Recent records reviewed in detail discussed with patient. Patient with acute coronary syndrome in the setting of atrial fibrillation with rapid response in November. Recurrence and subsequent synchronized electrical cardioversion on 12/27/2022 with initiation of antiarrhythmic therapy with amiodarone. Patient presents with junctional bradycardia after restart of diltiazem and metoprolol superimposed on amiodarone therapy. Rhythm has returned back to sinus bradycardia after holding medication EKG performed 01/12/2023 and interpreted independently: Sinus bradycardia at 50 bpm, long first-degree AV block, OH interval [address] changes, relatively unchanged compared to the previous tracing dating back to time of cardiac catheterization in November, -At dose of 100 mg p.o. 1 time per day as compared to 200 mg twice daily. -Metoprolol and diltiazem have been discontinued and recommend remaining off of these medications. -Acute kidney injury noted, with presenting creatinine of 2.57, improved down to 1.66 mg/dL as of 01/13/2023. Continue to hold lisinopril for now. -Continue amlodipine for hypertension. Once creatinine reaches baseline, likely reintroduce lisinopril at a higher dose or even perhaps start Entresto. -Update echocardiogram with previous study having been performed at [facility] in November,. At that time ejection fraction was mildly reduced in the range of 35 to 39%. -We will continue to monitor patient on telemetry for evaluation of heart rate response off of metoprolol and diltiazem and with the addition of oral amiodarone. Future considerations include EP input either during this hospital stay or as an outpatient. Patient would like to transition his primary cardiac care back to [facility] for outpatient follow-up as it is closer to his home. -Eliquis will need to be interrupted to allow for pacemaker or AICD implantation, but would ideally like to have him on at least 1 month of uninterrupted anticoagulation having had recent cardioversion on 12/27/2022. Admission and Anticipated Discharge Date Admission Date: January 11, 2023 Subjective Patient seen in cardiology follow-up. No acute complaints. Ongoing sinus bradycardia with rates in the 40s noted on telemetry. No additional junctional bradycardia. No pauses. Long first-degree AV block observed. Physical Exam Constitutional: WD/WN, vitals as above no acute distress Eyes: PERRL, conjunctivae normal, anicteric sclerae ENMT: external ear and nose normal, oropharynx normal Neck: trachea midline, no thyromegaly Respiratory: normal respiratory effort, lungs clear to auscultation Cardiovascular: Rate/Rhythm: regular rate, regular rhythm and + bradycardic Palpation: S3 nonpalpable Vessels: no JVD Extremities: no edema Gastrointestinal (Abdomen): normal bowel sounds, soft, nontender, no hepatosplenomegaly Musculoskeletal: no cyanosis or clubbing, extremities motor strength 5/5 Results & Data Vital Signs (Past 12 Hours) Vital Signs Temp Pulse Pulse Resp BP Pulse Ox O2 Del Method 01/13/23 11:39 36.5 C 49 L 19 160/72 H 97 Room Air 01/13/23 06:02 51 L 01/13/23 07:28 36.6 C 51 L 19 146/67 H 97 Room Air 01/13/23 03:27 36.9 C 51 L 17 144/65 H 96 Room Air Laboratory Results CBC 01/13/23 Range/Units 05:53 WBC 7.15 (4.8-10.8) K/ul RBC 4.01 L (4.70-6.10) M/uL Hgb 12.5 L (14.0-18.0) g/dl Hct 37.7 L (42.0-52.0) % Plt Count 180 (130-400) K/uL Comprehensive Metabolic Panel 01/13/23 Range/Units 05:53 Sodium 139 (136-145) mmol/L Potassium 4.5 (3.5-5.1) mmol/L Chloride 110 H (98-107) mmol/L Carbon Dioxide 21 (21-32) mmol/L BUN 30 H (6-23) mg/dl Creatinine 1.66 H (0.6-1.4) mg/dl Glucose 97 (70-99(Fasting)) mg/dl Calcium 8.5 L (8.6-10.3) mg/dl Intake and Output 0601/13/23 01/13/23 22:59 06:59 14:59 Intake Total 290 / 600 680 / 680 Balance 290 / 600 680 / 680 Intake: Oral 290 / 410 680 / 680 Other: # Unmeasured Voids 1 Weight 69.8 kg Weight Measurement Method Built in [facility]
[2023-01-13] MEDS: AMIODARONE 200 MG TAB PO SCH (14:56)
--- NOTE | 2023-01-13 16:47 | Hospitalist Progress Note ---
Date of Service January 13, 2023 Assessment & Plan (1) Bradycardia: Plan: Patient is 77-year-old male with PMH HTN, HLD, DM II, paroxysmal atrial fibrillation, history of cardioversion, CAD s/p CABG presented to ER with complaint of fatigue with walking up flight of stairs today and noted bradycardia. Recent hospitalization for atrial fibrillation s/p successful cardioversion with noted bradycardia and metoprolol, diltiazem discontinued and patient was started on amiodarone. Recently was restarted outpatient on metoprolol succinate 50 mg daily, diltiazem at 180 mg daily. amiodarone was decreased from 200mg BID to once daily Junctional bradycardia H/O paroxysmal atrial fibrillation Secondary to restarting diltiazem and metoprolol superimposed on amiodarone therapy --Normal TSH Metoprolol, diltiazem discontinued Appreciate cardiology input Amiodarone resumed at 100 mg daily May need to be evaluated by EP eventually Continue to monitor on telemetry Hypomagnesemia Replete electrolytes as needed (2) MT (acute kidney injury): (3) CKD (chronic kidney disease), stage III: Plan: MT on CKD III Cr Baseline ~1.5 to 2 Cr 1.6 today Received IV Fluids Hold lisinopril for now (4) Paroxysmal A-fib: Plan: H/O paroxysmal atrial fibrillation. S/P cardioversion 11/08/2022 and 12/27/2022 Anticoagulated on Eliquis Continue Eliquis Metoprolol, diltiazem DCed due to bradycardia Resumed amiodarone 100mg daily (5) CAD (coronary artery disease): Plan: S/p CABG History NSTEMI 11/07/2022 Continue aspirin, atorvastatin, ezetimibe Beta-roger discontinued secondary to bradycardia (6) HTN (hypertension): Plan: Continue amlodipine Hold Lisinopril Monitor BP (7) DM II (diabetes mellitus, type II), controlled: Plan: A1c: 7.6 on 12/28/2022 Hold metformin, Farxiga NovoLog sliding scale per protocol DVT Px Eliquis Code Status Full Code Admission and Anticipated Discharge Date Admission Date: January 11, 2023 Subjective Patient is seen and examined at bedside Doing well No new complaints Bradycardic in 40s on monitor Denies any chest pain, dyspnea, dizziness, nausea, abdominal pain Family at bedside Review of Systems Review of Systems: All systems reviewed & are unremarkable except as noted in Subjective Physical Exam Physical Exam: Physical Exam: Vitals signs as noted above General Appearance:Moderately built and nourished, no apparent distress Head: normocephalic, Atraumatic Eyes: normal inspection, EOMI Neck: supple, Trachea midline Respiratory/Chest: Normal breath sounds, CTA, No accessory muscle use Cardiovascular: S1, S2, No murmur, +bradycardia Abdomen/GI:Soft, Non tender, Bowel sounds present Extremities/Musculoskeletal:normal inspection, no edema Neurologic/Psych:AAOX3, grossly no focal neurological deficits Skin: normal color, warm Results & Data Results & Data Vital Signs (Past 12 Hours) Vital Signs Temp Pulse Pulse Resp BP Pulse Ox O2 Del Method 01/13/23 14:14 47 L 01/13/23 15:14 36.4 C L 46 L 18 123/62 97 Room Air 01/13/23 11:39 36.5 C 49 L 19 160/72 H 97 Room Air 01/13/23 06:02 51 L 01/13/23 07:28 36.6 C 51 L 19 146/67 H 97 Room Air Laboratory Results Short CBC 01/13/23 Range/Units 05:53 WBC 7.15 (4.8-10.8) K/ul Hgb 12.5 L (14.0-18.0) g/dl Hct 37.7 L (42.0-52.0) % Plt Count 180 (130-400) K/uL BMP 01/13/23 05:53 Sodium 139 Potassium 4.5 Chloride 110 H Carbon Dioxide 21 BUN 30 H Creatinine 1.66 H Glucose 97 Calcium 8.5 L
[2023-01-13] MEDS: ATORVASTATIN 40 MG TAB PO SCH (19:38)
[2023-01-14 06:35] LABS: Hemoglobin 13.4 g/dl (14.0-18.0); Mean Corpuscular Hemoglobin 30.7 pg (25.0-34.0); Mean Corpuscular Hgb Conc 33.5 g/dL (32.0-36.0); Mean Corpuscular Volume 91.7 fL (80.0-100.0); Platelet Count 199 K/uL (130-400); RDW Coefficient of Variation 13.6 % (11.5-14.5); RDW Standard Deviation 46.5 fL (36.4-46.3); Red Blood Count 4.36 M/uL (4.70-6.10); White Blood Count 6.22 K/ul (4.8-10.8)
[2023-01-14 06:50] LABS: BUN Creatinine Ratio 19.6 (10-20); Calcium 8.8 mg/dl (8.6-10.3); Creatinine Clr Calc Pharmacy 32.7 ml/min; Est GFR (African American) 45.8 ml/min; Est GFR (Non-African American) 39.5 ml/min; Magnesium 2.1 mg/dl (1.7-2.4); Potassium 4.6 mmol/L (3.5-5.1)
[2023-01-14] MEDS: EZETIMIBE 10 MG TABLET PO SCH (08:12)
[2023-01-14] MEDS: AMIODARONE 200 MG TAB PO SCH (08:12)
[2023-01-14] MEDS: INSULIN ASPART PER UNIT CHARGE SC SCH ×2 (08:12→12:25)
[2023-01-14] MEDS: ASPIRIN 81 MG ECTAB PO SCH (08:13)
[2023-01-14] MEDS: amLODIPine BESYLATE 5 MG TAB PO SCH (08:13)
[2023-01-14] MEDS ORDERED: lisinopril 5 MG TAB PO SCH (11:45)
[2023-01-14] MEDS ORDERED: ISOSORBIDE MONO EXTENDED REL 30 MG TABCR PO SCH (12:45)
--- NOTE | 2023-01-14 14:10 | Hospitalist Progress Note ---
Date of Service January 14, 2023 Assessment & Plan (1) Bradycardia: Plan: Patient is 77-year-old male with PMH HTN, HLD, DM II, paroxysmal atrial fibrillation, history of cardioversion, CAD s/p CABG presented to ER with complaint of fatigue with walking up flight of stairs today and noted bradycardia. Recent hospitalization for atrial fibrillation s/p successful cardioversion with noted bradycardia and metoprolol, diltiazem discontinued and patient was started on amiodarone. Recently was restarted outpatient on metoprolol succinate 50 mg daily, diltiazem at 180 mg daily. amiodarone was decreased from 200mg BID to once daily Junctional bradycardia H/O paroxysmal atrial fibrillation Secondary to restarting diltiazem and metoprolol superimposed on amiodarone therapy Ischemic cardiomyopathy --Normal TSH --ECHO: Moderate concentric LVH. Moderate sized inferior and posterior wall motion abnormality with hypokinesis of the basal and mid levels. Left ventricular systolic function is moderately reduced. EF 35 to 40%. Right ventricle is normal in size and function. Trace mitral and tricuspid regurgitation Metoprolol, diltiazem discontinued Appreciate cardiology input Amiodarone resumed at 100 mg daily May need to be evaluated by EP eventually Started on isosorbide lisinopril resumed Hypomagnesemia Replete electrolytes as needed (2) MT (acute kidney injury): (3) CKD (chronic kidney disease), stage III: Plan: MT on CKD III Cr Baseline ~1.5 to 2 Cr 1.6 today Received IV Fluids (4) Paroxysmal A-fib: Plan: H/O paroxysmal atrial fibrillation. S/P cardioversion 11/08/2022 and 12/27/2022 Anticoagulated on Eliquis Continue Eliquis Metoprolol, diltiazem DCed due to bradycardia Resumed amiodarone 100mg daily (5) CAD (coronary artery disease): Plan: S/p CABG History NSTEMI 11/07/2022 Continue aspirin, atorvastatin, ezetimibe Beta-roger discontinued secondary to bradycardia (6) HTN (hypertension): Plan: Continue amlodipine, Lisinopril Monitor BP (7) DM II (diabetes mellitus, type II), controlled: Plan: A1c: 7.6 on 12/28/2022 Hold metformin, Farxiga NovoLog sliding scale per protocol DVT Px Eliquis Code Status Full Code Admission and Anticipated Discharge Date Admission Date: January 11, 2023 Subjective Patient is seen and examined at bedside Sitting in chair during my encounter No new complaints Remains Bradycardic Denies any chest pain, dyspnea, dizziness, nausea, abdominal pain Family at bedside Review of Systems Review of Systems: All systems reviewed & are unremarkable except as noted in Subjective Physical Exam Physical Exam: Physical Exam: Vitals signs as noted above General Appearance:Moderately built and nourished, no apparent distress Head: normocephalic, Atraumatic Eyes: normal inspection, EOMI Neck: supple, Trachea midline Respiratory/Chest: Normal breath sounds, CTA, No accessory muscle use Cardiovascular: S1, S2, No murmur, +bradycardia Abdomen/GI:Soft, Non tender, Bowel sounds present Extremities/Musculoskeletal:normal inspection, no edema Neurologic/Psych:AAOX3, grossly no focal neurological deficits Skin: normal color, warm Results & Data Results & Data Vital Signs (Past 12 Hours) Vital Signs Temp Pulse Resp BP Pulse Ox O2 Del Method 01/14/23 10:49 36.4 C L 49 L 19 174/73 H 99 Room Air 01/14/23 08:00 Room Air 01/14/23 07:34 36.4 C L 51 L 19 154/75 H 97 Room Air 01/14/23 03:44 36.5 C 48 L 20 109/58 L 96 Room Air Laboratory Results Short CBC 01/14/23 Range/Units 05:37 WBC 6.22 (4.8-10.8) K/ul Hgb 13.4 L (14.0-18.0) g/dl Hct 40.0 L (42.0-52.0) % Plt Count 199 (130-400) K/uL [facility] 01/14/23 05:37 Sodium 139 Potassium 4.6 Chloride 109 H Carbon Dioxide 24 BUN 32 H Creatinine 1.63 H Glucose 118 H Calcium 8.8
--- NOTE | 2023-01-14 14:33 | Cardiology Progress Note ---
Date of Service January 14, 2023 Assessment & Plan (1) Junctional bradycardia: (2) CKD (chronic kidney disease), stage III: (3) CAD (coronary artery disease): (4) Paroxysmal A-fib: Plan Patient is a 77-year-old male with underlying history of ischemic heart disease, ischemic cardiomyopathy and paroxysmal atrial fibrillation. Repeat echocardiogram performed today revealed the presence of moderate concentric left ventricular hypertrophy with a moderate-sized inferior and posterior wall motion abnormality with hypokinesis of the basal and mid levels of these [place]. Left ventricular ejection fraction is moderately reduced at 35- 40%, relatively unchanged compared to his recent admission at [facility]. EKG performed 01/12/2023 revealed sinus bradycardia 50 bpm with first-degree AV block, MI interval 318 ms, QRS duration 110 ms. Chronic lateral repolarization changes. Patient with longstanding history of coronary heart disease, CABG x2 at [facility] in 2008. Patient presented to [facility] on 11/07/2022 with acute onset of chest tightness. -EKG performed at [facility] dated 11/07/2022 revealed atrial flutter at 113 bpm, with incomplete right bundle branch block, and marked inferior and lateral ST segment depression with noted 2-2.[address] segment elevation in leads aVR and V1. -Compared to a previous tracing performed in October,, the atrial flutter was a chronic finding, however the lateral ST depression was much more prominent than the October tracing. -The patient was transferred by helicopter to [facility] and underwent cardiac catheterization by Dr. Howe on 11/08/2022. Patient was found to have multivessel coronary heart disease with 100% stenosis in the mid LAD, 100% stenosis of the mid circumflex, and the right coronary artery was a small nondominant vessel with a 100% stenosis. The ELISE to LAD was widely patent, distal however to the ELISE to LAD anastomosis however there was a 70% stenosis in the apical LAD. A saphenous vein graft that appeared to be to the obtuse marginal territory was 100% occluded. -Collaterals are noted from the LAD territory to the circumflex and right coronary territories. -Medical management was recommended and the patient underwent direct-current cardioversion receiving 200 J of biphasic energy at the time cardiac catheterization. -At present, junctional rhythm has reverted to sinus rhythm with having stopped patient's metoprolol succinate 50 mg daily and diltiazem extended release 180 mg daily. The patient had been counseled to discontinue these medications at the time of his recent hospital stay at [facility] 3 weeks ago, in favor of amiodarone therapy for rhythm control and close follow-up, however he had been taking metoprolol, diltiazem as well as amiodarone 200 mg twice daily at home prior to presentation. -With patient's long first-degree AV block it is clear that he has underlying conduction system disease, in the future, beta-roger therapy likely indicated to help from congestive heart failure, angina, and rhythm control standpoint. After further discussion with the patient, will plan for outpatient cardiology follow-up to establish with Dr. Trivedi of EP on 01/23/23 at 1 pm at [facility]. The patient's most recent blood pressure reading at 10:49 AM was 174/73, he has since received doses of lisinopril and isosorbide mononitrate. Repeat blood pressure pending. As long as blood pressure is improved. We will plan on discharge today on the following medications: Amiodarone 100 mg, 1 tablet by mouth daily (dose changed) Amlodipine 5 mg by mouth daily (replaces diltiazem) Lisinopril 5 mg daily (titrated from 2.5 mg daily). Isosorbide mononitrate extended release 30 mg daily (new medication). Aspirin 81 mg daily Eliquis 5 mg twice daily Atorvastatin 80 mg daily at bedtime Ezetimibe 10 mg daily I spent a total of 40 minutes on the date of service in preparation, delivery, and documentation of the care provided to this patient, excluding any time spent in the performance of separately billed services. This included discussing the case with Dr. Trivedi of EP and arranging post hopsital follow up. Admission and Anticipated Discharge Date Admission Date: January 11, 2023 Subjective Patient seen in cardiology follow-up today. Notes feeling well. Denies any lightheadedness or dizziness. Telemetry reveals sinus bradycardia with first- degree AV block, rates for the most part in the 50s while sitting in chair. No pauses. Review of Systems Review of Systems: All systems reviewed & are unremarkable except as noted in HPI & below Physical Exam Constitutional: WD/WN, vitals as above no acute distress Eyes: PERRL, conjunctivae normal, anicteric sclerae ENMT: external ear and nose normal, oropharynx normal Neck: trachea midline, no thyromegaly Respiratory: normal respiratory effort, lungs clear to auscultation Cardiovascular: Rate/Rhythm: regular rate, regular rhythm and + bradycardic Palpation: S3 nonpalpable Vessels: no JVD Extremities: no edema Gastrointestinal (Abdomen): normal bowel sounds, soft, nontender, no hepatosplenomegaly Musculoskeletal: no cyanosis or clubbing, extremities motor strength 5/5 Results & Data Vital Signs (Past 12 Hours) Vital Signs Temp Pulse Resp BP Pulse Ox O2 Del Method 01/14/23 10:49 36.4 C L 49 L 19 174/73 H 99 Room Air 01/14/23 08:00 Room Air 01/14/23 07:34 36.4 C L 51 L 19 154/75 H 97 Room Air 01/14/23 03:44 36.5 C 48 L 20 109/58 L 96 Room Air Laboratory Results CBC 01/14/23 Range/Units 05:37 WBC 6.22 (4.8-10.8) K/ul RBC 4.36 L (4.70-6.10) M/uL Hgb 13.4 L (14.0-18.0) g/dl Hct 40.0 L (42.0-52.0) % Plt Count 199 (130-400) K/uL Comprehensive Metabolic Panel 01/14/23 Range/Units 05:37 Sodium 139 (136-145) mmol/L Potassium 4.6 (3.5-5.1) mmol/L Chloride 109 H (98-107) mmol/L Carbon Dioxide 24 (21-32) mmol/L BUN 32 H (6-23) mg/dl Creatinine 1.63 H (0.6-1.4) mg/dl Glucose 118 H (70-99(Fasting)) mg/dl Calcium 8.8 (8.6-10.3) mg/dl
--- NOTE | 2023-01-14 15:17 | Discharge Summary ---
Date of Service January 14, 2023 Admission HPI Per Admitting Provider Patient is 77-year-old male with PMH HTN, HLD, DM II, paroxysmal atrial fibrillation, history of cardioversion, CAD s/p CABG presented to ER with complaint of fatigue with walking up flight of stairs today and noted rajwinder ycardia. History NSTEMI transferred from [facility] to [facility] 11/07/2022-11/10/2022. During hospitalization had atrial flutter Cardiac cath on 11/08 which showed critical lac vieux vessel disease with total occlusion of mid LAD, mid L Cx and RCA. ELISE to LAD was patent. There was distal lesion in the lac vieux LAD after the touchdown of the ELISE but felt to be too distal for meaningful pursuit. The SVG was occluded. His RCA and L Cx territories were supplied by collaterals from his ELISE to LAD. He had cardioversion after the cath and return to sinus rhythm. 11/09/2022 echo EF 35-39%, large sized inferior, posterior and lateral wall motion abnormalities with hypokinesis to akinesis of the segments, mildly reduced right ventricular systolic function, mild aortic root valve regurgitation, mild mitral regurgitation Follows with Crissy MONTALVO [facility]. Had follow-up on 11/20/2022 and was noted to have sinus bradycardia with marked NJ prolongation. He was instructed to discontinue diltiazem and continue Coreg. History of hospitalization 12/27/2022-12/30/2022 for atrial fibrillation, exertional angina, MT on CKD III. Had successful cardioversion on 12/27/2022 back in sinus rhythm. His prior home diltiazem and carvedilol were discontinued and patient was started on amiodarone and metoprolol. Patient developed bradycardia with first-degree AV block and metoprolol was discontinued. Heart rates had improved to the low 50s and patient was asymptomatic and he was deemed stable for discharge on amiodarone and was to follow-up with EP telephone maintainer. Patient presented to ER today with complaint of fatigue. He reports today he was at an outdoor sale. He states he was having some shortness of breath with exertion. He reports walking up a flight of stairs and was feeling very fa tigued so he checked his heart rate which was around 40 bpm. Patient states once daily he has been checking his heart rates and they have been 50-55 and he has been asymptomatic. Reports he was feeling well prior to today. [facility] restart[facility] him on metoprolol succinate 50 mg daily, restarted diltiazem at 180 mg daily, decreased amiodarone from 200mg BID to once daily, started amlodipine 5 mg daily and lisinopril 2.5mg daily. Denies fever/chills, diaphoresis, N/V/D/C, JENKINS, dizziness, syncope, vision changes, neck pain, CP, orthopnea, palpitations, cough, sore throat, rhinorrhea, abdominal pain, paresthesias, extremity weakness, extremity edema, rashes, dysuria, hematuria. Outpatient pharmacy prescription refills reviewed: filled 12/27/2022 metoprolol succinate 50 mg 1 tablet at bedtime Amiodarone 200 mg twice daily filled on 12/30/2022 Diltiazem 180 mg 1 capsule daily filled on 01/06/2023 Amlodipine 5 mg daily filled on 01/07/2023 Lisinopril 2.5 mg filled on 01/02/2023 Today in ER found to be bradycardic rate 30s to low 40s. At rest patient is asymptomatic. Admission Exam Per Admitting Provider General: no distress, WDWN Head: normocephalic, atraumatic Eyes:conjunctiva non-injected, anicteric ENT: normal inspection external ears, nose, mucous membranes moist Neck: supple, trachea midline Lungs: clear, no respiratory distress, no wheezing/rhonchi/rales CV: + Bradycardia, rate 38, regular rhythm, no murmur, no pretibial edema Abd: normal BS, soft, non-tender Ext: no cyanosis, no calf tenderness Neuro: A&O x 3, no focal deficits noted, normal affect Skin: warm, dry Principal Diagnosis Junctional bradycardia Hypomagnesemia Acute kidney injury Discharge Data Allergies Allergy/AdvReac Type Severity Reaction Status Date / Time No Known Allergies Allergy Unverified 12/27/22 12:55 Consultations 01/11/23 15:53 ED Decision to Admit Stat 01/11/23 17:48 Consult Cardiology Routine Procedures Performed Laboratory Results WBC 6.22 K/ul (4.8-10.8) 01/14/23 05:37 RBC 4.36 M/uL (4.70-6.10) L 01/14/23 05:37 Hgb 13.4 g/dl (14.0-18.0) L 01/14/23 05:37 Hct 40.0 % (42.0-52.0) L 01/14/23 05:37 MCV 91.7 fL (80.0-100.0) 01/14/23 05:37 MCH 30.7 pg (25.0-34.0) 01/14/23 05:37 MCHC 33.5 g/dL (32.0-36.0) 01/14/23 05:37 RDW Std Deviation 46.5 fL (36.4-46.3) H 01/14/23 05:37 RDW Coeff of Katelyn 13.6 % (11.5-14.5) 01/14/23 05:37 Plt Count 199 K/uL (130-400) 01/14/23 05:37 MPV 10.0 fL (9.4-12.4) 01/14/23 05:37 Immature Gran % (Auto) 0.4 % 01/11/23 13:22 Neut % (Auto) 75.5 % 01/11/23 13:22 Lymph % (Auto) 14.4 % 01/11/23 13:22 Thomas % (Auto) 8.2 % 01/11/23 13:22 Eos % (Auto) 0.7 % 01/11/23 13:22 Baso % (Auto) 0.8 % 01/11/23 13:22 Neut # (Auto) 7.14 K/uL (1.40-6.50) H 01/11/23 13:22 Lymph # (Auto) 1.36 K/uL (1.2-3.4) 01/11/23 13:22 Thomas # (Auto) 0.78 K/uL (0.11-0.59) H 01/11/23 13:22 Eos # (Auto) 0.07 K/uL (0-0.50) 01/11/23 13:22 Baso # (Auto) 0.08 K/uL (0-0.2) 01/11/23 13:22 Immature Gran # (Auto) 0.04 K/uL (0.01-0.20) 01/11/23 13:22 Sodium 139 mmol/L (136-145) 01/14/23 05:37 Potassium 4.6 mmol/L (3.5-5.1) 01/14/23 05:37 Chloride 109 mmol/L (98-107) H 01/14/23 05:37 Carbon Dioxide 24 mmol/L (21-32) 01/14/23 05:37 Anion Gap 6 (3-11) 01/14/23 05:37 BUN 32 mg/dl (6-23) H 01/14/23 05:37 Creatinine 1.63 mg/dl (0.6-1.4) H 01/14/23 05:37 Est Cr Clr Drug Dosing 32.7 ml/min 01/14/23 05:37 Est GFR ( Amer) 45.8 ml/min 01/14/23 05:37 Est GFR (Non-Af Amer) 39.5 ml/min 01/14/23 05:37 BUN/Creatinine Ratio 19.6 (10-20) 01/14/23 05:37 Glucose 118 mg/dl (70-99(Fasting)) H 01/14/23 05:37 POC Glucose 140 mg/dl (70-99) H 01/14/23 11:34 Calcium 8.8 mg/dl (8.6-10.3) 01/14/23 05:37 Magnesium 2.1 mg/dl (1.7-2.4) 01/14/23 05:37 Total Bilirubin 0.4 mg/dl (0.2-1.0) 01/12/23 05:16 AST 13 U/L (13-39) 01/12/23 05:16 ALT 24 U/L (7-52) 01/12/23 05:16 Alkaline Phosphatase 56 U/L (34-104) 01/12/23 05:16 Troponin I High Sens 27.5 pg/ml (0-20) H 01/12/23 05:16 Total Protein 5.7 gm/dl (6.0-8.3) L 01/12/23 05:16 Albumin 3.5 gm/dl (3.4-5.0) 01/12/23 05:16 Globulin 2.2 gm/dl (2.5-4.0) L 01/12/23 05:16 Albumin/Globulin Ratio 1.6 (0.9-2) 01/12/23 05:16 TSH 2.353 uIu/ml (0.300-4.500) 01/11/23 13:22 SARS-CoV-2, RNA, NAAT NEGATIVE (NEGATIVE) 01/11/23 13:38 Impressions Chest X-Ray 01/11/23 14:30 XR chest 1V portable CLINICAL HISTORY: bradycardia COMPARISON STUDY: Chest radiograph December 27, 2022. FINDINGS: There are median sternotomy wires. Cardiomegaly is noted. No evidence for pulmonary edema. There is no consolidation to suggest pneumonia. There is no pneumothorax or pleural effusion. IMPRESSION: No acute cardiopulmonary findings. ACT 112: Negative or not required by law. Electronically signed by: Rodger Judd M.D. 01/11/2023 3:13 PM Hospital Course (1) Bradycardia: Patient is 77-year-old male with PMH HTN, HLD, DM II, paroxysmal atrial fibrillation, history of cardioversion, CAD s/p CABG presented to ER with compla int of fatigue with walking up flight of stairs today and noted bradycardia. Recent hospitalization for atrial fibrillation s/p successful cardioversion with noted bradycardia and metoprolol, diltiazem discontinued and patient was started on amiodarone. Recently was restarted outpatient on metoprolol succinate 50 mg daily, diltiazem at 180 mg daily. amiodarone was decreased from 200mg BID to once daily Junctional bradycardia H/O paroxysmal atrial fibrillation Secondary to restarting diltiazem and metoprolol superimposed on amiodarone therapy Ischemic cardiomyopathy --Normal TSH --ECHO: Moderate concentric LVH. Moderate sized inferior and posterior wall motion abnormality with hypokinesis of the basal and mid levels. Left ventricular systolic function is moderately reduced. EF 35 to 40%. Right ventricle is normal in size and function. Trace mitral and tricuspid regurgitation Metoprolol, diltiazem discontinued Appreciate cardiology input Amiodarone resumed at 100 mg daily Started on isosorbide 30mg daily lisinopril resumed at 5mg daily Needs follow-up with EP as outpatient Hypomagnesemia Replete electrolytes as needed (2) MT (acute kidney injury): (3) CKD (chronic kidney disease), stage III: MT on CKD III Cr Baseline ~1.5 to 2 Cr 1.6 today Received IV Fluids (4) Paroxysmal A-fib: H/O paroxysmal atrial fibrillation. S/P cardioversion 11/08/2022 and 12/27/2022 Anticoagulated on Eliquis Continue Eliquis Metoprolol, diltiazem DCed due to bradycardia Resumed amiodarone 100mg daily (5) CAD (coronary artery disease): S/p CABG History NSTEMI 11/07/2022 Continue aspirin, atorvastatin, ezetimibe Beta-roger discontinued secondary to bradycardia (6) HTN (hypertension): Continue amlodipine, Lisinopril Monitor BP (7) DM II (diabetes mellitus, type II), controlled: A1c: 7.6 on 12/28/2022 Hold metformin, Farxiga NovoLog sliding scale per protocol DVT Px Eliquis Code Status Full Code Total Time Total Time Spent Total Time Spent (In Minutes): 56 minutes Discharge Plan Discharge Items Patient Disposition: Home - Home Health Services Reason For Visit: BRADYCARDIA Discharge Diagnosis: Junctional bradycardia Hypomagnesemia Acute kidney injury Activity: Per Instructions section Exercise/Sports: Wait until after follow-up appointment Non-emergency contact: Primary Care Provider and Pretzel Twisting Machine Operator Call non-emergency contact if: you have any medication questions, your symptoms worsen, your pain is concerning for you and you have a fever Follow-up/Referrals: Ann Trivedi DO [Physician] - 01/23/23 1:00 pm Mireya Merino CRNP [Outside Practitioners] - (Date & Time 01/16/2023 12:20 PM Provider KATIA Foss Department [facility] ) Diet: Carb Consistent or DM2 and Low Sodium (2gm) Addtl Attending Provider Instructions: Follow-up with your primary care physician Mireya MONTALVO on 01/16/2023 12:20 PM Follow-up with your telephone maintainer as scheduled Seek immediate medical attention if your symptoms reoccur or worsen Please take all medications as instructed on discharge list below. Please call if you have any questions or problems. You can reach a [place] [facility] on duty at [facility] 24 hours a day by calling [phone] Addtl Service Desk Associate Provider Instructions: Patient to follow-up with Dr. Ann Trivedi 01/23/23, 1:00 pm, Cardiology [facility] (office inside [facility]). Pending Studies at Discharge: No Stand-Alone Forms: [facility], Smoking Cessation Medications and DC Order Prescriptions: New isosorbide mononitrate 30 mg Tablet Extended Release 24 Hr 30 mg PO QAM Qty: 30 1RF lisinopril [Zestril] 5 mg Tablet 5 mg PO QAM 30 Days Qty: 30 1RF amiodarone 100 mg tablet 100 mg PO QAM Qty: 30 1RF Continued atorvastatin 80 mg tablet 80 mg PO HS aspirin [Adult Low Dose Aspirin] 81 mg tablet,delayed release (DR/EC) 81 mg PO DAILY nitroglycerin 0.4 mg tablet, sublingual See Rx Instructions .ROUTE .COMPLEX Rx Instructions: 0.4 mg sublingual RX instructions say to see attached for details. ezetimibe 10 mg tablet 10 mg PO DAILY Eliquis 5 mg tablet 5 mg PO BID Farxiga 10 mg tablet 10 mg PO DAILY amlodipine 5 mg tablet 5 mg PO DAILY metformin 1,000 mg tablet 1,000 mg PO QAM metformin 1,000 mg tablet 500 mg PO PM Discontinued diltiazem HCl 180 mg capsule,extended release 24hr 180 mg PO DAILY metoprolol succinate 50 mg tablet extended release 24 hr 50 mg PO PM lisinopril 2.5 mg tablet 2.5 mg PO DAILY amiodarone 200 mg tablet 200 mg PO DAILY Discharge Orders: Discharge Order (Routine); Ordered 01/14/23 Ordered By: Jeffrey Carpio Admission Data Admit Date/Time: 01/11/23 16:53 Attending Provider: Jeffrey Carpio Admit Provider: Jonathon Lyman Primary Care Provider: PCP,NO Other Providers: Jonathon Lyman ; Leonides Pizano ; [facility]
== END 2023-01-14 16:48 | disposition home health service (06) | DRG 309 ==
LOC: ED 12:59 → SUATTDRO 16:53 → 2S 16:53